=== PATIENT | female | born 1970 | race Caucasian/White ===

== ENCOUNTER → 2016-10-05 | Outpatient (CLI) | payer BC, OTHER ==
[~2016-10-05] MED LIST: ADVIN25/60 INH; ALBU1AER9 INH; ALBU1NEB10 NEB; ASTN; BUPR8MIS SL; ESCI1TAB10 PO; FEXO1TAB46 PO; FLUT0.0529 NAE; LINA1CAP2 PO; MRLP17X PO; OMEP40CA36 PO; ONDA4TAB9 PO; PLMINS NEB; SNG10 PO; SPR25 PO; TRAZ50TA35 PO
[2016-10-05 16:32] LABS: BENZODIAZEPINE, URINE NEG (NEG); COCAINE,URINE NEG (NEG); PHENCYCLIDINE, URINE NEG (NEG)
[2016-10-05 16:38] LABS: ALKALINE PHOSPHATASE 62 U/L (45-117); ALT/SGPT 23 U/L (12-78); AST/SGOT 22 U/L (15-37)
== END | disposition home or self-care (01) ==
LOC: C.LAB 12:23
PROVIDERS: ATTEND Psychiatry & Neurology Psychiatry
DX: F11.99 Opioid use, unspecified with unspecified opioid-induced disorder (principal)

== ENCOUNTER → 2017-01-20 | Outpatient (CLI) | payer BC, OTHER ==
[~2017-01-20] MED LIST changes: +ESCI1TAB18 PO; +FLUT50SP37 NAE; +OMEP40CA41 PO; +PRVIN525 INH; +VNTHFA/IN INH
[2017-01-20 13:12] LABS: BENZODIAZEPINE, URINE NEG (NEG); COCAINE,URINE NEG (NEG); PHENCYCLIDINE, URINE NEG (NEG)
== END | disposition home or self-care (01) ==
LOC: C.LAB 11:33
PROVIDERS: ATTEND Psychiatry & Neurology Psychiatry
DX: F32.9 Major depressive disorder, single episode, unspecified (principal)

== ENCOUNTER → 2017-05-19 | Outpatient (CLI) | payer BC, OTHER ==
[~2017-05-19] MED LIST changes: -ESCI1TAB18 PO; -FLUT50SP37 NAE; -OMEP40CA41 PO; -PRVIN525 INH; -VNTHFA/IN INH
[2017-05-19 12:20] LABS: BENZODIAZEPINE, URINE NEG (NEG); COCAINE,URINE NEG (NEG); PHENCYCLIDINE, URINE NEG (NEG)
[2017-05-22 12:28] LABS: NORBUPRENORPHINE QNT 1780 NG/ML (CUTOFF=2)
== END | disposition home or self-care (01) ==
LOC: C.LAB 10:51
PROVIDERS: ATTEND Psychiatry & Neurology Psychiatry
DX: F11.99 Opioid use, unspecified with unspecified opioid-induced disorder (principal)

== ENCOUNTER → 2017-07-16 | Outpatient (CLI) | payer BC, OTHER | END | disposition home or self-care (01) | LOC: C.LAB 14:22 | PROVIDERS: ATTEND Psychiatry & Neurology Psychiatry | DX: Z79.899 Other long term (current) drug therapy (principal) ==

== ENCOUNTER 2017-07-25 12:28 | Inpatient (IN) | payer BC, OTHER ==
[~2017-07-25] VITALS: Ht 160 cm; Wt 60.5 kg
[2017-07-25] MEDS ORDERED: ONDANSETRON INJ 2 MG/ML 2 ML VIAL ONE (12:57)
[2017-07-25] MEDS ORDERED: SODIUM CHLORIDE 0.9% 1000ML 1,000 ML IV STA ×2 (13:01→14:33)
[2017-07-25] MEDS ORDERED: HYDROmorphone INJ 1 MG/ML SYR IV STA ×3 (13:01→14:33)
[2017-07-25 13:28] LABS: BASO % 0.2 %; BASO ABS # 0.02 K/uL (0-0.2); COMPLETE YES; EOS % 1.9 %; HEMATOCRIT 40.6 % (37-47); IG% 0.3 %; LYMPH % 10.3 %; LYMPH ABS # 1.16 K/uL (1.2-3.4); MEAN CELL VOLUME 95.1 fL (80-100); MEAN CORPUSCULAR HGB CONC 34.7 g/dl (32-36); MEAN PLATELET VOLUME 9.6 fL (7.4-10.4); MONO % 3.7 %; NEUT % 83.6 %; PLATELET COUNT 492 K/uL (130-400); RED BLOOD COUNT 4.27 M/uL (4.2-5.4); WHITE BLOOD COUNT 11.22 K/uL (4.8-10.8)
[2017-07-25] MEDS ORDERED: ONDANSETRON INJ 2 MG/ML 2 ML VIAL IV STA (13:48)
[2017-07-25 13:50] LABS: BUN/CREATININE RATIO 16.1 (10-20); CALCIUM 9.8 mg/dl (8.5-10.1); CREATININE 0.91 mg/dl (0.60-1.20); POTASSIUM 3.9 mmol/L (3.5-5.1); PREG INTERNAL NEGATIVE QC NEG CLEAR BACKGROUND; PREG INTERNAL POSITIVE QC POS CONTROL LINE
[2017-07-25 13:53] LABS: ALB/GLOB RATIO 1.2 (0.9-2)
--- NOTE | 2017-07-25 14:28 | DIAGNOSTIC IMAGING REPORT ---
ABDOMEN 2VIEW W/PA CHEST RTN CLINICAL HISTORY: Generalized abdominal pain COMPARISON STUDY: Supine abdomen dated 07/22/2016 FINDINGS: The cardiac and mediastinal contours are normal. There is no focal pulmonary consolidation. There are minor right basilar atelectatic changes. There is no free air. Erect and supine views the abdomen reveal surgical clips within the left upper quadrant. There is moderate stool within the colon. There are mildly dilated central abdominal small bowel loops measuring up to 3 cm. There are scattered air-fluid levels on the erect study. IMPRESSION: Nonspecific bowel gas pattern with mildly dilated central small bowel loops. The findings could be secondary to either an ileus or early/low grade small bowel obstruction. No free air is visualized. Clinical follow-up is advocated Electronically signed by: Andres Bowen M.D. 07/25/2017 2:27 PM Dictated Date/Time: 07/25/2017 2:25 PM
[2017-07-25] MEDS ORDERED: VNTHFA/IN INH (15:08)
[2017-07-25] MEDS ORDERED: OMEP40CA41 PO (15:08)
[2017-07-25] MEDS ORDERED: ESCI1TAB18 PO (15:08)
[2017-07-25] MEDS ORDERED: FLUT50SP37 NAE (15:08)
[2017-07-25] MEDS ORDERED: PRVIN525 INH (15:08)
[2017-07-25] MEDS ORDERED: ONDANSETRON INJ 2 MG/ML 2 ML VIAL IV PRN (15:30)
[2017-07-25 15:58] VITALS: BP 121/79; PULSE 62; TEMP 37.1; O2SAT 96; Ht 160 cm; Wt 60.5 kg
[2017-07-25] MEDS: D5W AND 1/2NSS 1,000 ML IV SCH (16:12)
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
[2017-07-25] MEDS ORDERED: ACETAMINOPHEN 325 MG TAB PO PRN (16:30)
[2017-07-25] MEDS: MoRPHine SULFATE 4 MG/ML 1 ML CARP\\VIAL IV PRN ×2 (16:42→21:31)
[2017-07-25] MEDS ORDERED: BUDESONIDE 0.5 MG/2 ML VIAL (PULMICORT) INH PRN (16:45)
[2017-07-25] MEDS ORDERED: POLYETHYLENE (MIRALAX) 17 GM PACK PO PRN (16:45)
[2017-07-25 16:47] LABS: URINE APPEARANCE CLEAR (CLEAR); URINE BILIRUBIN NEG (NEG); URINE COLOR YELLOW; URINE NITRITE NEG (NEG); URINE SPECIFIC GRAVITY 1.021 (1.000-1.030); UROBILINOGEN POS (NEG); ZZUR CULT IF INDIC CLEAN CATCH NO
[2017-07-25 16:51] LABS: MANUAL MICROSCOPIC REQUIRED? NO; REVIEW REQ? NO
[2017-07-25] MEDS: SPIRONOLACTONE 25 MG TAB PO SCH (18:02)
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
--- NOTE | 2017-07-25 18:36 | EMERGENCY ROOM VISIT NOTE ---
History Report prepared by Diana: Eliot Fry Under the Supervision of: Dr. Tyler Lakhani M.D. First contact with patient: 12:56 Chief Complaint: GI ASSESSMENT Stated Complaint: BOWEL PROBLEMS Nursing Triage Summary: triage note: Pt reports "i am pretty sure i have another bowel obstructions." pt reports generalized abd pain since last night, nausea. pt reports constipation - unsure of when last bm was. History of Present Illness The patient is a 46 year old female who presents to the Emergency Room with complaints of constant abdominal pain that started last night. She rates her pain as a 10/10 in severity. The patient states that she has also been experiencing chills and nausea since last night. The patient states that her last bowel movement was two days ago. She reports that her abdomen has been distended since. The patient admits to a history of bowel obstructions, with her last one a year ago. She also admits to a history of peritonitis. The patient denies any fever and vomiting. Source of History: patient, spouse/significant other Onset: last night Position: abdomen Symptom Intensity: 10/10 Timing: constant Associated Symptoms: + chills, + nausea, No fevers, No vomiting Review of Systems See HPI for pertinent positives & negatives. A total of 10 systems reviewed and were otherwise negative. Past Medical & Surgical Medical Problems: (1) Allergic rhinitis (2) Anxiety (3) Asthma, Unspecified (4) Chronic neck and back pain (5) Gastroparesis (6) Hiatal hernia (7) History of Carter's esophagus (8) History of GI bleed (9) History of migraine (10) History of peritonitis (11) History of small bowel obstruction (12) Tobacco Use Disorder Surgical Problems: (1) H/O section (2) H/O laparoscopy (3) History of bronchoscopy (4) Hx of splenectomy (5) Status post tonsillectomy and adenoidectomy Old medical records were reviewed. Nurse's notes were reviewed and I agree with. Family History Diabetes mellitus FH: heart disease Social History Smoking Status: Current Every Day Smoker Drug Use: none, other Marital Status: Housing Status: lives with family Occupation Status: employed Current/Historical Medications Scheduled Buprenorphine Hcl-Naloxone Hcl (Suboxone 8-2 Mg), 8 MG SL BID Escitalopram Oxalate (Lexapro), 40 MG PO DAILY Fexofenadine Hcl (Olivia), 180 MG PO DAILY Fluticasone Prop/Salmeterol (Advair Diskus 250/50 60 Dose), 1 PUFFS INH BID Fluticasone Propionate (Nasal) (Clarispray), 2 SPRAYS NINA DAILY Linaclotide (Linzess), 290 MCG PO DAILY Montelukast Sod (Montelukast Sodium), 10 MG PO HS Omeprazole (Prilosec), 40 MG PO DAILY Spironolactone (Spironolactone), 25 MG PO BID Trazodone Hcl (Trazodone), 50 MG PO HS Scheduled PRN Albuterol Hfa (Ventolin Hfa), 2-4 PUFFS INH Q6H PRN for Shortness of Breath Albuterol Sulf (Albuterol Sulfate), 1 VIAL INH Q4 PRN for SOB/Wheezing Azelastine Hcl (Astelin Nasal [place]), 2 SPRAYS NA BID PRN for Nasal Congestion Budesonide (Budesonide), 2 ML NEB DAILY PRN for SOB/Wheezing Ondansetron (Ondansetron HCl), 4 MG PO Q6H PRN for Nausea Polyethylene (Miralax), 17 GM PO DAILY PRN for Constipation Allergies Coded Allergies: Psyllium (Verified Allergy, Severe, RESP DISTRESS, 07/25/17) POLLEN (Verified Allergy, Intermediate, "SEASONAL ALLERGIES", 07/25/17) Metoclopramide (Verified Allergy, Unknown, ?, 07/25/17) Hydroxyzine (Verified Adverse Reaction, Intermediate, ANXIETY, 07/25/17) Physical Exam Vital Signs Date Time Temp Pulse Resp B/P (MAP) Pulse Ox O2 Delivery O2 Flow Rate FiO2 07/25/17 14:43 59 16 127/88 99 Room Air 07/25/17 13:24 65 07/25/17 13:24 62 19 138/97 97 Room Air 07/25/17 12:34 36.5 78 18 122/87 98 Room Air Physical Exam General: Non-ill uncomfortable appearing middle aged female in no acute distress. HEENT: Normal cephalic atraumatic. Pupils are equal round and reactive to light. Extraocular movements are intact. Oropharynx is pink with moist mucous membranes. No swelling of the mouth lips or tongue. Neck: Supple with a midline trachea. No meningeal signs or stiffness, no JVD or bruits. No Stridor. Chest: Clear to auscultation bilaterally. No wheezes or rhonchi. No increased work of breathing. Heart: regular rate and rhythm. Abdomen: Soft nontender, nondistended without rebound guarding or rigidity. Abdomen diffusely tender Extremities: No cyanosis clubbing or edema. No calf tenderness or assymetry Spine/Back. Non tender to palpation. No CVA tenderness Skin: Good turgor without rashes. Neurologic exam: Cranial nerves two through 12 are intact. Motor and sensation are intact and symmetrical throughout. Medical Decision & Procedures ER Provider Diagnostic Interpretation: X-ray results as stated below per interpretation by me and the radiologist: ABDOMEN 2VIEW W/PA CHEST RTN CLINICAL HISTORY: Generalized abdominal pain COMPARISON STUDY: Supine abdomen dated 07/22/2016 FINDINGS: The cardiac and mediastinal contours are normal. There is no focal pulmonary consolidation. There are minor right basilar atelectatic changes. There is no free air. Erect and supine views the abdomen reveal surgical clips within the left upper quadrant. There is moderate stool within the colon. There are mildly dilated central abdominal small bowel loops measuring up to 3 cm. There are scattered air-fluid levels on the erect study. IMPRESSION: Nonspecific bowel gas pattern with mildly dilated central small bowel loops. The findings could be secondary to either an ileus or early/low grade small bowel obstruction. No free air is visualized. Clinical follow-up is advocated Electronically signed by: Andres Bowen M.D. 07/25/2017 2:27 PM Dictated Date/Time: 07/25/2017 2:25 PM Laboratory Results 07/25/17 13:15 Red Blood Count 4.27, Mean Corpuscular Volume 95.1, Mean Corpuscular Hemoglobin 33.0, Mean Corpuscular Hemoglobin Concent 34.7, Mean Platelet Volume 9.6, Neutrophils (%) (Auto) 83.6, Lymphocytes (%) (Auto) 10.3, Monocytes (%) (Auto) 3.7, Eosinophils (%) (Auto) 1.9, Basophils (%) (Auto) 0.2, Neutrophils # (Auto) 9.38, Lymphocytes # (Auto) 1.16, Monocytes # (Auto) 0.42, Eosinophils # (Auto) 0.21, Basophils # (Auto) 0.02 07/25/17 13:15 Test 07/25/17 13:15 White Blood Count 11.22 K/uL (4.8-10.8) Red Blood Count 4.27 M/uL (4.2-5.4) Hemoglobin 14.1 g/dL (12.0-16.0) Hematocrit 40.6 % (37-47) Mean Corpuscular Volume 95.1 fL (80-100) Mean Corpuscular Hemoglobin 33.0 pg (25-34) Mean Corpuscular Hemoglobin Concent 34.7 g/dl (32-36) Platelet Count 492 K/uL (130-400) Mean Platelet Volume 9.6 fL (7.4-10.4) Neutrophils (%) (Auto) 83.6 % Lymphocytes (%) (Auto) 10.3 % Monocytes (%) (Auto) 3.7 % Eosinophils (%) (Auto) 1.9 % Basophils (%) (Auto) 0.2 % Neutrophils # (Auto) 9.38 K/uL (1.4-6.5) Lymphocytes # (Auto) 1.16 K/uL (1.2-3.4) Monocytes # (Auto) 0.42 K/uL (0.11-0.59) Eosinophils # (Auto) 0.21 K/uL (0-0.5) Basophils # (Auto) 0.02 K/uL (0-0.2) RDW Standard Deviation 47.4 fL (36.4-46.3) RDW Coefficient of Variation 13.7 % (11.5-14.5) Immature Granulocyte % (Auto) 0.3 % Immature Granulocyte # (Auto) 0.03 K/uL (0.00-0.02) Anion Gap 11.0 mmol/L (3-11) Est Creatinine Clear Calc Drug Dose 65.2 ml/min Estimated GFR () 88.9 Estimated GFR (Non- 76.7 BUN/Creatinine Ratio 16.1 (10-20) Calcium Level 9.8 mg/dl (8.5-10.1) Total Bilirubin 0.4 mg/dl (0.2-1) Aspartate Amino Transf (AST/SGOT) 24 U/L (15-37) Alanine Aminotransferase (ALT/SGPT) 20 U/L (12-78) Alkaline Phosphatase 70 U/L (45-117) Total Protein 8.3 gm/dl (6.4-8.2) Albumin 4.5 gm/dl (3.4-5.0) Globulin 3.8 gm/dl (2.5-4.0) Albumin/Globulin Ratio 1.2 (0.9-2) Lipase 160 U/L (73-393) Human Chorionic Gonadotropin, Qual NEG (NEG) Laboratory studies as stated above per my review. Medications Administered Medications (Trade) Dose Ordered Sig/Arian Route Start Time Stop Time Status Last Admin Dose Admin Ondansetron HCl (Zofran Inj) 4 mg STK-MED ONCE .ROUTE 07/25/17 12:57 07/25/17 12:58 DC 07/25/17 12:57 4 MG Sodium Chloride 1,000 ml @ 999 mls/hr Q1H1M STAT IV 07/25/17 13:01 07/25/17 14:01 DC 07/25/17 13:01 999 MLS/HR Hydromorphone HCl (Dilaudid Inj) 1 mg NOW STAT IV 07/25/17 13:01 07/25/17 13:03 DC 07/25/17 13:01 1 MG Ondansetron HCl (Zofran Inj) 4 mg NOW STAT IV 07/25/17 13:48 07/25/17 13:49 DC 07/25/17 14:07 4 MG Hydromorphone HCl (Dilaudid Inj) 1 mg NOW STAT IV 07/25/17 13:48 07/25/17 13:49 DC 07/25/17 14:07 1 MG Sodium Chloride 1,000 ml @ 999 mls/hr Q1H1M STAT IV 07/25/17 14:33 07/25/17 15:33 DC 07/25/17 14:33 999 MLS/HR Hydromorphone HCl (Dilaudid Inj) 1 mg NOW STAT IV 07/25/17 14:33 07/25/17 14:35 DC 07/25/17 14:41 1 MG ED Course 1257: Past medical records reviewed. The patient was evaluated in room B10, and a complete history and physical examination were performed. 1257: Ordered Zofran Injection 4 mg IV. 1301: Ordered Dilaudid Injection 1 mg IV, Sodium Chloride 1000 ml @ 999 mls/hr IV. 1338: I reevaluated the patient and she was able to get an IV with a liter of fluids. She still is having pain. Upon reexamination, her exam is unchanged from her original exam. I will be ordering more medication for her pain and nausea. 1348: Ordered Dilaudid Injection 1 mg IV, Zofran Injection 4 mg IV. 1431: I reevaluated the patient and she is still in pain after CT. I will order more pain medications. 1433: Ordered Dilaudid Injection 1 mg IV, Sodium Chloride 1000 ml @ 999 mls/hr IV. 1435: [facility] understands the patients condition and agrees to accept the patient. The patient will be further evaluated. Medical Decision Differentials include, but limited to; SBO, dehydration, infection, electrolyte or metabolic abnormality. This patient comes in as described above. She was placed in room B 10. She is here for treatment and evaluation of abdominal pain and nausea. She has a history of small bowel obstruction secondary to adhesions and she had this several times before. She feels like this is what is going on. She appears very uncomfortable. IV access established and she was hydrated with IV normal saline. She received 2 L normal saline in the ER . She also received IV Dilaudid several times as well as IV Zofran . This helped she still appears to be uncomfortable. She's has no peritonitis should has minimal elevation of her white count. She is not anemic. She is not . She has no acute electrolyte or metabolic abnormalities. Acute abdominal series shows some air- fluid levels in likely early small bowel obstruction/ileus pattern. I do think she needs to be admitted for bowel rest hydration pain and nausea management further evaluation. I have consulted Dr. Kathleen and she [facility] Medication Reconcilliation Current Medication List: was personally reviewed by me Blood Pressure Screening Patient's blood pressure: Normal blood pressure Consults Time Called: 1434 Consulting Physician: Yfn Mclaughlin Returned Call: 1436 I discussed the patients case with Yfn Mclaughlin. He understands the patients condition and agrees to accept the patient. The patient will be further evaluated. Impression Primary Impression: SBO (small bowel obstruction) Scribe Attestation The scribe's documentation has been prepared under my direction and personally reviewed by me in its entirety. I confirm that the note above accurately reflects all work, treatment, procedures, and medical decision making performed by me. Departure Information Dispostion Being Evaluated By Hospitalist Referrals No Doctor, Assigned (PCP) Patient Instructions My [facility]
[2017-07-25] MEDS: ALBUTEROL HFA 8 GM INHALER INH PRN (18:53)
[2017-07-25] MEDS: FLUTICASONE/SALMETEROL 250/50 (ADVAIR) 14 PUFF/1 INHALER INH SCH (18:59)
[2017-07-25] MEDS: MONTELUKAST SOD 10 MG TAB PO SCH (21:29)
[2017-07-25] MEDS: TRAZODONE HCL 50 MG TAB PO SCH (21:29)
[2017-07-25] MEDS: BUPRENORPHINE/NALOXONE 8/2 MG TAB SL SCH (21:29)
[2017-07-25] MEDS: ALBUT/IPRATROP 3MG/0.5MG NEB 3 ML VIAL INH SCH (21:40)
[2017-07-25 21:41] VITALS: PULSE 68
[2017-07-25] MEDS: BENZONATATE 100MG CAP PO SCH (22:33)
[2017-07-25 22:55] VITALS: BP 99/57; PULSE 76; TEMP 37; O2SAT 94
[2017-07-26] VITALS (7 sets, daily range): BP systolic 93–96; BP diastolic 53–59; PULSE 63–85; TEMP 36.8; O2SAT 95–98
[2017-07-26] MEDS: MoRPHine SULFATE 4 MG/ML 1 ML CARP\\VIAL IV PRN (02:21)
[2017-07-26] MEDS: D5W AND 1/2NSS 1,000 ML IV SCH ×2 (04:29→17:53)
[2017-07-26] MEDS: ALBUT/IPRATROP 3MG/0.5MG NEB 3 ML VIAL INH SCH ×4 (07:22→20:16)
[2017-07-26 08:33] LABS: CREATININE 0.86 mg/dl (0.60-1.20)
[2017-07-26 08:34] LABS: ALB/GLOB RATIO 1.1 (0.9-2); CALCIUM 7.8 mg/dl (8.5-10.1); MAGNESIUM 1.9 mg/dl (1.8-2.4); POTASSIUM 3.2 mmol/L (3.5-5.1)
[2017-07-26 08:47] LABS: BASO % 0.2 %; BASO ABS # 0.02 K/uL (0-0.2); COMPLETE YES; EOS % 3.6 %; HEMATOCRIT 33.2 % (37-47); IG% 0.2 %; LYMPH % 26.4 %; MEAN CELL VOLUME 97.1 fL (80-100); MEAN CORPUSCULAR HEMOGLOBIN 32.2 pg (25-34); MEAN CORPUSCULAR HGB CONC 33.1 g/dl (32-36); MEAN PLATELET VOLUME 9.3 fL (7.4-10.4); MONO % 11.4 %; NEUT % 58.2 %; PLATELET COUNT 375 K/uL (130-400); RED BLOOD COUNT 3.42 M/uL (4.2-5.4); WHITE BLOOD COUNT 11.36 K/uL (4.8-10.8)
[2017-07-26] MEDS ORDERED: ESCITALOPRAM OXALATE 20 MG TAB PO SCH (09:00)
[2017-07-26] MEDS: FLUTICASONE/SALMETEROL 250/50 (ADVAIR) 14 PUFF/1 INHALER INH SCH ×2 (09:54→21:04)
[2017-07-26] MEDS: PANTOprazole SOD 40 MG TAB PO SCH (09:54)
[2017-07-26] MEDS: SPIRONOLACTONE 25 MG TAB PO SCH ×2 (09:54→16:27)
[2017-07-26] MEDS: BENZONATATE 100MG CAP PO SCH ×3 (09:55→21:06)
[2017-07-26] MEDS ORDERED: POTASSIUM CHLR 10 MEQ / WTR 10 MEQ in PREMIXED WATER 100 ML IV SCH (10:00)
--- NOTE | 2017-07-26 10:09 | Surgery Progress Note ---
Surgery Progress Note Date of Service Jul 26, 2017. Subjective Post OP Day: HD # 1 + feeling well, + flatus, + pain controlled, + diet (ice chips and sips of water ), No complaints, No chest pain, No SOB, No bowel movement, No nausea, No vomiting Objective Vital Signs: Date Time Temp Pulse Resp B/P (MAP) Pulse Ox O2 Delivery O2 Flow Rate FiO2 07/26/17 09:22 Room Air 07/26/17 07:41 36.8 70 20 95/53 (67) 98 Room Air 07/26/17 07:22 85 20 98 Room Air 07/25/17 23:26 Room Air 07/25/17 22:55 37.0 76 16 99/57 (71) 94 Room Air 07/25/17 21:41 68 20 07/25/17 16:30 Room Air 07/25/17 15:58 37.1 62 15 121/79 96 Room Air 07/25/17 15:19 64 20 130/76 99 Room Air 07/25/17 14:43 59 16 127/88 99 Room Air 07/25/17 13:24 65 07/25/17 13:24 62 19 138/97 97 Room Air 07/25/17 12:34 36.5 78 18 122/87 98 Room Air General Appearance: WD/WN, no apparent distress Head: normocephalic, atraumatic Neck: trachea midline Respiratory/Chest: no respiratory distress, no accessory muscle use Abdomen: soft, + distended (mild), + tenderness (upper quadrants, no rebound, guarding, or peritonitis) Laboratory Results: Results Past 24 Hours Test 07/25/17 13:15 07/25/17 16:30 07/26/17 07:29 Range/Units White Blood Count 11.22 11.36 4.8-10.8 K/uL Red Blood Count 4.27 3.42 4.2-5.4 M/uL Hemoglobin 14.1 11.0 12.0-16.0 g/dL Hematocrit 40.6 33.2 37-47 % Mean Corpuscular Volume 95.1 97.1 80-100 fL Mean Corpuscular Hemoglobin 33.0 32.2 25-34 pg Mean Corpuscular Hemoglobin Concent 34.7 33.1 32-36 g/dl Platelet Count 492 375 130-400 K/uL Mean Platelet Volume 9.6 9.3 7.4-10.4 fL Neutrophils (%) (Auto) 83.6 58.2 % Lymphocytes (%) (Auto) 10.3 26.4 % Monocytes (%) (Auto) 3.7 11.4 % Eosinophils (%) (Auto) 1.9 3.6 % Basophils (%) (Auto) 0.2 0.2 % Neutrophils # (Auto) 9.38 6.62 1.4-6.5 K/uL Lymphocytes # (Auto) 1.16 3.00 1.2-3.4 K/uL Monocytes # (Auto) 0.42 1.29 0.11-0.59 K/uL Eosinophils # (Auto) 0.21 0.41 0-0.5 K/uL Basophils # (Auto) 0.02 0.02 0-0.2 K/uL RDW Standard Deviation 47.4 49.3 36.4-46.3 fL RDW Coefficient of Variation 13.7 13.8 11.5-14.5 % Immature Granulocyte % (Auto) 0.3 0.2 % Immature Granulocyte # (Auto) 0.03 0.02 0.00-0.02 K/uL Sodium Level 141 143 136-145 mmol/L Potassium Level 3.9 3.2 3.5-5.1 mmol/L Chloride Level 105 110 98-107 mmol/L Carbon Dioxide Level 25 25 21-32 mmol/L Anion Gap 11.0 8.0 3-11 mmol/L Blood Urea Nitrogen 15 7 7-18 mg/dl Creatinine 0.91 0.86 0.60-1.20 mg/dl Est Creatinine Clear Calc Drug Dose 65.2 69.0 ml/min Estimated GFR () 88.9 95.2 Estimated GFR (Non- 76.7 82.2 BUN/Creatinine Ratio 16.1 8.0 10-20 Random Glucose 127 114 70-99 mg/dl Calcium Level 9.8 7.8 8.5-10.1 mg/dl Total Bilirubin 0.4 0.4 0.2-1 mg/dl Aspartate Amino Transf (AST/SGOT) 24 19 15-37 U/L Alanine Aminotransferase (ALT/SGPT) 20 15 12-78 U/L Alkaline Phosphatase 70 55 45-117 U/L Total Protein 8.3 5.9 6.4-8.2 gm/dl Albumin 4.5 3.1 3.4-5.0 gm/dl Globulin 3.8 2.8 2.5-4.0 gm/dl Albumin/Globulin Ratio 1.2 1.1 0.9-2 Lipase 160 73-393 U/L Human Chorionic Gonadotropin, Qual NEG NEG Urine Color YELLOW Urine Appearance CLEAR CLEAR Urine pH 8.0 4.5-7.5 Urine Specific [place] 1.021 1.000-1.030 Urine Protein NEG NEG Urine Glucose (UA) NEG NEG Urine Ketones 1+ NEG Urine Occult Blood NEG NEG Urine Nitrite NEG NEG Urine Bilirubin NEG NEG Urine Urobilinogen POS NEG Urine Leukocyte Esterase NEG NEG Magnesium Level 1.9 1.8-2.4 mg/dl Assessment & Plan 46 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 Passing flatus, no bowel movements. Vitals stable and afebrile. Tolerating ice chips and sips of water. Abdomen soft, slightly distended with tenderness of the upper quadrants, no peritonitis or rigidity Plan: Continue conservative management at this time: IV fluids, Pain management, IV Zofran, and clear liquids encourage ambulation and OOB to chair Continue medical management will follow Dr. Calvin has seen pt, agrees with above
[2017-07-26] MEDS: ESCITALOPRAM OXALATE 20 MG TAB PO SCH (10:22)
[2017-07-26] MEDS: BUPRENORPHINE/NALOXONE 8/2 MG TAB SL SCH ×2 (10:22→21:05)
[2017-07-26] MEDS: NICOTINE 21 MG/24 HR TDSY TD SCH (11:44)
[2017-07-26] MEDS ORDERED: POTASSIUM CHLORIDE 20 MEQ TABCR PO ONE (13:00)
--- NOTE | 2017-07-26 13:44 | Progress Note ---
Medicine Progress Note Date & Time of Visit: Jul 26, 2017 at 13:26. Subjective 46 yo F with h/o multiple abdominal surgeries and h/o SBO in the past presents with nausea and abdominal pain with xray findings consistent with ileus vs early SBO -abdominal pain has resolved -no nausea or vomiting -ambulating -hungry -passing flatus -no BM since admission, has chronic constipation and uses Linzess which is non- formulary -son is getting medication at home. Objective Last 8 Hrs Date Time Temp Pulse Resp B/P (MAP) Pulse Ox O2 Delivery O2 Flow Rate FiO2 07/26/17 11:27 76 20 98 Room Air 07/26/17 09:22 Room Air 07/26/17 09:00 Room Air 07/26/17 07:41 36.8 70 20 95/53 (67) 98 Room Air 07/26/17 07:22 85 20 98 Room Air Physical Exam: GEN: WNWD, in no acute distress, alert and appropriate HEENT: NC/AT, normal sclerae, MMM CARDIO: reg rate, S1/2 heard without m/g/r LUNGS: CTA bilaterally, no crackles, rales or wheezes, good diaphragmatic excursion ABD: soft, diffuse tenderness worse on L side, non-distended, no rebound or guarding, +BS x 3 quadrants. EXTREMITY: RP and DP palpable 2+ bilat, no LE swelling or edema, extremities are warm and well-perfused NEURO: CN 2-12 grossly intact, no gross focal deficits. MUSC: 5/5 strength throughout, no focal deficits, ambulatory SKIN: warm and dry Laboratory Results: 07/26/17 07:29 Red Blood Count 3.42, Mean Corpuscular Volume 97.1, Mean Corpuscular Hemoglobin 32.2, Mean Corpuscular Hemoglobin Concent 33.1, Mean Platelet Volume 9.3, Neutrophils (%) (Auto) 58.2, Lymphocytes (%) (Auto) 26.4, Monocytes (%) (Auto) 11.4, Eosinophils (%) (Auto) 3.6, Basophils (%) (Auto) 0.2, Neutrophils # (Auto ) 6.62, Lymphocytes # (Auto) 3.00, Monocytes # (Auto) 1.29, Eosinophils # (Auto ) 0.41, Basophils # (Auto) 0.02 07/26/17 07:29 Test 07/25/17 13:15 07/25/17 16:30 07/26/17 07:29 Lipase 160 U/L (73-393) Human Chorionic Gonadotropin, Qual NEG (NEG) Urine Color YELLOW Urine Appearance CLEAR (CLEAR) Urine pH 8.0 (4.5-7.5) Urine Specific [place] 1.021 (1.000-1.030) Urine Protein NEG (NEG) Urine Glucose (UA) NEG (NEG) Urine Ketones 1+ (NEG) Urine Occult Blood NEG (NEG) Urine Nitrite NEG (NEG) Urine Bilirubin NEG (NEG) Urine Urobilinogen POS (NEG) Urine Leukocyte Esterase NEG (NEG) White Blood Count 11.36 K/uL (4.8-10.8) Red Blood Count 3.42 M/uL (4.2-5.4) Hemoglobin 11.0 g/dL (12.0-16.0) Hematocrit 33.2 % (37-47) Mean Corpuscular Volume 97.1 fL (80-100) Mean Corpuscular Hemoglobin 32.2 pg (25-34) Mean Corpuscular Hemoglobin Concent 33.1 g/dl (32-36) Platelet Count 375 K/uL (130-400) Mean Platelet Volume 9.3 fL (7.4-10.4) Neutrophils (%) (Auto) 58.2 % Lymphocytes (%) (Auto) 26.4 % Monocytes (%) (Auto) 11.4 % Eosinophils (%) (Auto) 3.6 % Basophils (%) (Auto) 0.2 % Neutrophils # (Auto) 6.62 K/uL (1.4-6.5) Lymphocytes # (Auto) 3.00 K/uL (1.2-3.4) Monocytes # (Auto) 1.29 K/uL (0.11-0.59) Eosinophils # (Auto) 0.41 K/uL (0-0.5) Basophils # (Auto) 0.02 K/uL (0-0.2) RDW Standard Deviation 49.3 fL (36.4-46.3) RDW Coefficient of Variation 13.8 % (11.5-14.5) Immature Granulocyte % (Auto) 0.2 % Immature Granulocyte # (Auto) 0.02 K/uL (0.00-0.02) Anion Gap 8.0 mmol/L (3-11) Est Creatinine Clear Calc Drug Dose 69.0 ml/min Estimated GFR () 95.2 Estimated GFR (Non- 82.2 BUN/Creatinine Ratio 8.0 (10-20) Calcium Level 7.8 mg/dl (8.5-10.1) Magnesium Level 1.9 mg/dl (1.8-2.4) Total Bilirubin 0.4 mg/dl (0.2-1) Aspartate Amino Transf (AST/SGOT) 19 U/L (15-37) Alanine Aminotransferase (ALT/SGPT) 15 U/L (12-78) Alkaline Phosphatase 55 U/L (45-117) Total Protein 5.9 gm/dl (6.4-8.2) Albumin 3.1 gm/dl (3.4-5.0) Globulin 2.8 gm/dl (2.5-4.0) Albumin/Globulin Ratio 1.1 (0.9-2) Last 24 Hours Test 07/25/17 16:30 07/26/17 07:29 Urine Color YELLOW Urine Appearance CLEAR Urine pH 8.0 Urine Specific [place] 1.021 Urine Protein NEG Urine Glucose (UA) NEG Urine Ketones 1+ Urine Occult Blood NEG Urine Nitrite NEG Urine Bilirubin NEG Urine Urobilinogen POS Urine Leukocyte Esterase NEG White Blood Count 11.36 K/uL Red Blood Count 3.42 M/uL Hemoglobin 11.0 g/dL Hematocrit 33.2 % Mean Corpuscular Volume 97.1 fL Mean Corpuscular Hemoglobin 32.2 pg Mean Corpuscular Hemoglobin Concent 33.1 g/dl Platelet Count 375 K/uL Mean Platelet Volume 9.3 fL Neutrophils (%) (Auto) 58.2 % Lymphocytes (%) (Auto) 26.4 % Monocytes (%) (Auto) 11.4 % Eosinophils (%) (Auto) 3.6 % Basophils (%) (Auto) 0.2 % Neutrophils # (Auto) 6.62 K/uL Lymphocytes # (Auto) 3.00 K/uL Monocytes # (Auto) 1.29 K/uL Eosinophils # (Auto) 0.41 K/uL Basophils # (Auto) 0.02 K/uL RDW Standard Deviation 49.3 fL RDW Coefficient of Variation 13.8 % Immature Granulocyte % (Auto) 0.2 % Immature Granulocyte # (Auto) 0.02 K/uL Sodium Level 143 mmol/L Potassium Level 3.2 mmol/L Chloride Level 110 mmol/L Carbon Dioxide Level 25 mmol/L Anion Gap 8.0 mmol/L Blood Urea Nitrogen 7 mg/dl Creatinine 0.86 mg/dl Est Creatinine Clear Calc Drug Dose 69.0 ml/min Estimated GFR () 95.2 Estimated GFR (Non- 82.2 BUN/Creatinine Ratio 8.0 Random Glucose 114 mg/dl Calcium Level 7.8 mg/dl Magnesium Level 1.9 mg/dl Total Bilirubin 0.4 mg/dl Aspartate Amino Transf (AST/SGOT) 19 U/L Alanine Aminotransferase (ALT/SGPT) 15 U/L Alkaline Phosphatase 55 U/L Total Protein 5.9 gm/dl Albumin 3.1 gm/dl Globulin 2.8 gm/dl Albumin/Globulin Ratio 1.1 Assessment & Plan 46 yo F with h/o multiple abdominal surgeries and h/o SBO in the past presents with nausea and abdominal pain with xray findings consistent with ileus vs early SBO 1. Abdominal pain 2/2 ileus vs SBO-pain has resolved at this time. She has been up and walking around with improvement. She is passing gas, declines nausea and reports hunger. Advancing diet to clear liquids and monitor progress overnight. She has seen in the past that stress is her trigger and there have been stressful events in her life recently. Cont Zofran PRN, minimize narcotics with h/o opioid addiction in the past. Cont Suboxone for pain control. Appreciate General Surgery. Miralax PRN-awaiting Linzess from home. 2. h/o opioid addiction-minimize excessive narcotic PO use, cont suboxone. 3. Asthma-controlled, cont Advair and singulair 4. Depression/anxiety-stable, cont Lexapro 5. Hyopkalemia-replaced PO, repeat in am. DVT ppx: Lovenox. Full Code dispo-to home when tolerating PO, likely 1-2 more days DO Yfn Montes Hospitalist Consultants: General Surgery Current Inpatient Medications: Current Inpatient Medications Medications (Trade) Dose Ordered Sig/Arian Route Start Time Stop Time Status Last Admin Dose Admin Ondansetron HCl (Zofran Inj) 4 mg Q4H PRN IV 07/25/17 15:30 08/24/17 15:29 Dextrose/Sodium Chloride 1,000 ml @ 75 mls/hr [id number] IV 07/25/17 15:30 08/24/17 15:29 07/26/17 04:29 75 MLS/HR Morphine Sulfate (MoRPHine SULFATE INJ) 4 mg Q4H PRN IV 07/25/17 16:30 08/08/17 16:29 07/26/17 02:21 4 MG Acetaminophen (Tylenol Tab) 650 mg Q6H PRN PO 07/25/17 16:30 08/24/17 16:29 Albuterol (Ventolin Hfa Inhaler) 2 puffs Q6H PRN INH 07/25/17 16:45 08/24/17 16:44 07/25/17 18:53 2 PUFFS Budesonide (Pulmicort Respules 0.5MG/ 2ML Neb Soln) 1 mg DAILY PRN INH 07/25/17 16:45 08/24/17 16:44 Future Hold Buprenorphine/ Naloxone (Suboxone Tab) 1 tab BID SL 07/25/17 21:00 08/24/17 20:59 07/26/17 10:22 1 TAB Salmeterol Xinafoate/ Fluticasone (Advair Diskus 250/50 Inh) 1 puff BID INH 07/25/17 21:00 08/24/17 20:59 07/26/17 09:54 1 PUFF Montelukast Sodium (Singulair Tab) 10 mg HS PO 07/25/17 21:00 08/24/17 20:59 07/25/17 21:29 10 MG Polyethylene (Miralax Powder Packet) 17 gm DAILY PRN PO 07/25/17 16:45 08/24/17 16:44 Spironolactone (Aldactone Tab) 25 mg BID17 PO 07/25/17 17:00 08/24/17 16:59 07/26/17 09:54 25 MG Trazodone HCl (Desyrel Tab) 50 mg HS PO 07/25/17 21:00 08/24/17 20:59 07/25/17 21:29 50 MG Miscellaneous Information (Order Awaiting Action) 1 ea QS N/A 07/26/17 00:00 08/25/17 00:00 Pantoprazole Sodium (Protonix Tab) 40 mg DAILY PO 07/26/17 09:00 08/25/17 08:59 07/26/17 09:54 40 MG Escitalopram Oxalate (Lexapro Tab) 20 mg DAILY PO 07/26/17 09:00 08/25/17 08:59 07/26/17 10:22 20 MG Albuterol/ Ipratropium (Duoneb) 3 ml QIDR INH 07/26/17 08:00 08/25/17 07:59 07/26/17 11:27 3 ML Benzonatate (Tessalon Perles Cap) 100 mg TID PO 07/26/17 09:00 08/25/17 08:59 07/26/17 09:55 100 MG Diphenhydramine HCl (Benadryl Cap) 25 mg HS PRN PO 07/25/17 21:45 08/24/17 21:44 07/25/17 22:32 25 MG Nicotine (Nicoderm Cq 21MG Patch) 1 patch QAM TD 07/26/17 11:00 08/25/17 10:59 07/26/17 11:44 1 PATCH Miscellaneous (Remove Nicoderm Patch) 1 ea HS N/A 07/26/17 21:00 08/25/17 20:59
[2017-07-26] MEDS ORDERED: POLYETHYLENE (MIRALAX) 17 GM PACK PO PRN (13:45)
[2017-07-26 14:23] LABS: PROTHROMBIN TIME (PATIENT) 10.6 SECONDS (9.0-12.0)
[2017-07-26] MEDS: ENOXAPARIN 40 MG/0.4 ML SYR SQ SCH (16:26)
[2017-07-26] MEDS: MONTELUKAST SOD 10 MG TAB PO SCH (21:05)
[2017-07-26] MEDS: TRAZODONE HCL 50 MG TAB PO SCH (21:06)
[2017-07-26] MEDS ORDERED: NURSING VERBAL MED ORDER ONE (23:15)
[2017-07-27] MEDS ORDERED: LINACLOTIDE 290 MCG PO SCH (06:00)
[2017-07-27 06:32] LABS: HEMATOCRIT 30.5 % (37-47); MEAN CELL VOLUME 96.5 fL (80-100); MEAN CORPUSCULAR HEMOGLOBIN 32.6 pg (25-34); MEAN CORPUSCULAR HGB CONC 33.8 g/dl (32-36); MEAN PLATELET VOLUME 9.4 fL (7.4-10.4); PLATELET COUNT 364 K/uL (130-400); RED BLOOD COUNT 3.16 M/uL (4.2-5.4); WHITE BLOOD COUNT 7.64 K/uL (4.8-10.8)
[2017-07-27] MEDS: D5W AND 1/2NSS 1,000 ML IV SCH ×2 (06:40→20:28)
[2017-07-27] MEDS: ALBUT/IPRATROP 3MG/0.5MG NEB 3 ML VIAL INH SCH ×2 (06:59→11:21)
[2017-07-27 07:00] VITALS: PULSE 64; O2SAT 97
[2017-07-27 07:02] LABS: BUN/CREATININE RATIO 5.1 (10-20); CALCIUM 7.8 mg/dl (8.5-10.1); CREATININE 0.85 mg/dl (0.60-1.20); MAGNESIUM 1.7 mg/dl (1.8-2.4); POTASSIUM 3.6 mmol/L (3.5-5.1)
[2017-07-27 07:26] VITALS: BP 96/54; PULSE 69; TEMP 36.7; O2SAT 94
[2017-07-27] MEDS: PANTOprazole SOD 40 MG TAB PO SCH (09:11)
[2017-07-27] MEDS: ESCITALOPRAM OXALATE 20 MG TAB PO SCH (09:11)
[2017-07-27] MEDS: FLUTICASONE/SALMETEROL 250/50 (ADVAIR) 14 PUFF/1 INHALER INH SCH ×2 (09:12→20:29)
[2017-07-27] MEDS: NICOTINE 21 MG/24 HR TDSY TD SCH (09:12)
[2017-07-27] MEDS: BENZONATATE 100MG CAP PO SCH ×3 (09:12→20:28)
[2017-07-27] MEDS: SPIRONOLACTONE 25 MG TAB PO SCH ×2 (09:12→16:55)
[2017-07-27] MEDS: BUPRENORPHINE/NALOXONE 8/2 MG TAB SL SCH ×2 (10:00→20:28)
[2017-07-27 11:23] VITALS: PULSE 68; O2SAT 98
--- NOTE | 2017-07-27 14:02 | Progress Note ---
Medicine Progress Note Date & Time of Visit: Jul 27, 2017 at 14:01 . Subjective Abdominal distention. No nausea or vomiting. Passing flatus, no stool. No fever. No cough or SOB. No urinary symptoms. Ambulating. . Objective Last 8 Hrs Date Time Temp Pulse Resp B/P (MAP) Pulse Ox O2 Delivery O2 Flow Rate FiO2 07/27/17 11:23 68 14 98 Room Air 07/27/17 07:50 Room Air 07/27/17 07:26 36.7 69 17 96/54 (68) 94 Room Air 07/27/17 07:00 64 16 97 Room Air Physical Exam: General- no distress Lungs- clear Heart- RRR, no murmur or gallop Abdomen- moderately distended, + BS, soft, diffuse mild tenderness Extremities- no pretibial edema or calf tenderness Neuro- alert Skin- warm & dry . Laboratory Results: Last 24 Hours Test 07/27/17 06:16 White Blood Count 7.64 K/uL Red Blood Count 3.16 M/uL Hemoglobin 10.3 g/dL Hematocrit 30.5 % Mean Corpuscular Volume 96.5 fL Mean Corpuscular Hemoglobin 32.6 pg Mean Corpuscular Hemoglobin Concent 33.8 g/dl RDW Standard Deviation 48.7 fL RDW Coefficient of Variation 13.8 % Platelet Count 364 K/uL Mean Platelet Volume 9.4 fL Sodium Level 143 mmol/L Potassium Level 3.6 mmol/L Chloride Level 113 mmol/L Carbon Dioxide Level 23 mmol/L Anion Gap 7.0 mmol/L Blood Urea Nitrogen 4 mg/dl Creatinine 0.85 mg/dl Est Creatinine Clear Calc Drug Dose 69.8 ml/min Estimated GFR () 96.6 Estimated GFR (Non- 83.3 BUN/Creatinine Ratio 5.1 Random Glucose 116 mg/dl Calcium Level 7.8 mg/dl Magnesium Level 1.7 mg/dl Assessment & Plan SMALL BOWEL OBSTRUCTION Probable SBO secondary to adhesions from previous surgeries. Abdomen still distended. Passing flatus, but no stool. Continue clear liquids. Advance diet as tolerated. HYPOKALEMIA Replace. Follow. ASTHMA Stable. CHRONIC PAIN SYNDROME / OPIOID ADDICTION Continue Suboxone. VTE PROPHYLAXIS SQ enoxaparin. Ambulate. DISPOSITION Expected discharge to home. Family Medicine follow-up with Dr. Hairston. . Consultants: General Surgery Current Inpatient Medications: Current Inpatient Medications Medications (Trade) Dose Ordered Sig/Arian Route Start Time Stop Time Status Last Admin Dose Admin Ondansetron HCl (Zofran Inj) 4 mg Q4H PRN IV 07/25/17 15:30 08/24/17 15:29 Dextrose/Sodium Chloride 1,000 ml @ 75 mls/hr [id number] IV 07/25/17 15:30 08/24/17 15:29 07/27/17 06:40 75 MLS/HR Morphine Sulfate (MoRPHine SULFATE INJ) 4 mg Q4H PRN IV 07/25/17 16:30 08/08/17 16:29 Future Hold 07/26/17 02:21 4 MG Acetaminophen (Tylenol Tab) 650 mg Q6H PRN PO 07/25/17 16:30 08/24/17 16:29 Albuterol (Ventolin Hfa Inhaler) 2 puffs Q6H PRN INH 07/25/17 16:45 08/24/17 16:44 07/25/17 18:53 2 PUFFS Budesonide (Pulmicort Respules 0.5MG/ 2ML Neb Soln) 1 mg DAILY PRN INH 07/25/17 16:45 08/24/17 16:44 Future Hold Buprenorphine/ Naloxone (Suboxone Tab) 1 tab BID SL 07/25/17 21:00 08/24/17 20:59 07/27/17 10:00 1 TAB Salmeterol Xinafoate/ Fluticasone (Advair Diskus 250/50 Inh) 1 puff BID INH 07/25/17 21:00 08/24/17 20:59 07/27/17 09:12 1 PUFF Montelukast Sodium (Singulair Tab) 10 mg HS PO 07/25/17 21:00 08/24/17 20:59 07/26/17 21:05 10 MG Polyethylene (Miralax Powder Packet) 17 gm DAILY PRN PO 07/25/17 16:45 08/24/17 16:44 Spironolactone (Aldactone Tab) 25 mg BID17 PO 07/25/17 17:00 08/24/17 16:59 07/27/17 09:12 25 MG Trazodone HCl (Desyrel Tab) 50 mg HS PO 07/25/17 21:00 08/24/17 20:59 07/26/17 21:06 50 MG Pantoprazole Sodium (Protonix Tab) 40 mg DAILY PO 07/26/17 09:00 08/25/17 08:59 07/27/17 09:11 40 MG Escitalopram Oxalate (Lexapro Tab) 20 mg DAILY PO 07/26/17 09:00 08/25/17 08:59 07/27/17 09:11 20 MG Albuterol/ Ipratropium (Duoneb) 3 ml QIDR INH 07/26/17 08:00 08/25/17 07:59 07/27/17 11:21 3 ML Benzonatate (Tessalon Perles Cap) 100 mg TID PO 07/26/17 09:00 08/25/17 08:59 07/27/17 09:12 100 MG Diphenhydramine HCl (Benadryl Cap) 25 mg HS PRN PO 07/25/17 21:45 08/24/17 21:44 07/25/17 22:32 25 MG Nicotine (Nicoderm Cq 21MG Patch) 1 patch QAM TD 07/26/17 11:00 08/25/17 10:59 07/27/17 09:12 1 PATCH Miscellaneous (Remove Nicoderm Patch) 1 ea HS N/A 07/26/17 21:00 08/25/17 20:59 07/26/17 21:07 1 EA Enoxaparin Sodium (Lovenox Inj) 40 mg Q24H SQ 07/26/17 16:00 08/25/17 15:59 07/26/17 16:26 40 MG Polyethylene (Miralax Powder Packet) 17 gm DAILY PRN PO 07/26/17 13:45 08/25/17 13:44 Linaclotide (Linzess) 290 mcg HS PO 07/27/17 21:00 08/26/17 20:59
--- NOTE | 2017-07-27 14:23 | Surgery Progress Note ---
Surgery Progress Note Date of Service Jul 27, 2017. Subjective Post OP Day: HD # 2 + feeling well had some abdominal pain after drinking clear liquids yesterday, took it slow Still passing flatus, no bowel movement No nausea or vomiting pain improving daily walking the halls multiple times a day Objective Vital Signs: Date Time Temp Pulse Resp B/P (MAP) Pulse Ox O2 Delivery O2 Flow Rate FiO2 07/27/17 11:23 68 14 98 Room Air 07/27/17 07:50 Room Air 07/27/17 07:26 36.7 69 17 96/54 (68) 94 Room Air 07/27/17 07:00 64 16 97 Room Air 07/26/17 23:47 Room Air 07/26/17 23:08 36.8 63 16 95/54 (68) 96 Room Air 07/26/17 20:16 76 16 97 Room Air 07/26/17 15:23 36.8 74 18 96/59 (71) 95 Room Air 07/26/17 15:15 Room Air 07/26/17 15:09 71 16 97 Room Air General Appearance: WD/WN, no apparent distress Head: normocephalic, atraumatic Neck: trachea midline Respiratory/Chest: no respiratory distress, no accessory muscle use Abdomen: soft, no organomegaly, no pulsatile mass, + distended (mild distention ), + tenderness (upper abdomen bilaterally, improved, no gaurding or peritonitis or rigidity), + pertinent finding (midline laparotomy scar present) Laboratory Results: Results Past 24 Hours Test 07/27/17 06:16 Range/Units White Blood Count 7.64 4.8-10.8 K/uL Red Blood Count 3.16 4.2-5.4 M/uL Hemoglobin 10.3 12.0-16.0 g/dL Hematocrit 30.5 37-47 % Mean Corpuscular Volume 96.5 80-100 fL Mean Corpuscular Hemoglobin 32.6 25-34 pg Mean Corpuscular Hemoglobin Concent 33.8 32-36 g/dl RDW Standard Deviation 48.7 36.4-46.3 fL RDW Coefficient of Variation 13.8 11.5-14.5 % Platelet Count 364 130-400 K/uL Mean Platelet Volume 9.4 7.4-10.4 fL Sodium Level 143 136-145 mmol/L Potassium Level 3.6 3.5-5.1 mmol/L Chloride Level 113 98-107 mmol/L Carbon Dioxide Level 23 21-32 mmol/L Anion Gap 7.0 3-11 mmol/L Blood Urea Nitrogen 4 7-18 mg/dl Creatinine 0.85 0.60-1.20 mg/dl Est Creatinine Clear Calc Drug Dose 69.8 ml/min Estimated GFR () 96.6 Estimated GFR (Non- 83.3 BUN/Creatinine Ratio 5.1 10-20 Random Glucose 116 70-99 mg/dl Calcium Level 7.8 8.5-10.1 mg/dl Magnesium Level 1.7 1.8-2.4 mg/dl Assessment & Plan 46 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 Passing flatus, no bowel movements. Vitals stable and afebrile. Tolerating clear liquids slowly. Abdomen soft, slightly distended with tenderness of the upper quadrants, no peritonitis or rigidity Plan: Continue conservative management at this time: IV fluids, Pain management, IV Zofran, and clear liquids encourage ambulation and OOB to chair Continue medical management will follow Dr. Calero has seen pt, agrees with above
[2017-07-27 14:53] VITALS: BP 131/76; PULSE 62; TEMP 36.5; O2SAT 99
[2017-07-27] MEDS: ENOXAPARIN 40 MG/0.4 ML SYR SQ SCH (16:55)
[2017-07-27] MEDS: MONTELUKAST SOD 10 MG TAB PO SCH (20:28)
[2017-07-27] MEDS: TRAZODONE HCL 50 MG TAB PO SCH (20:29)
[2017-07-27] MEDS: LINACLOTIDE 290 MCG PO SCH (20:30)
[2017-07-27 23:10] VITALS: BP 104/63; PULSE 79; TEMP 36.6; O2SAT 94
[2017-07-27] MEDS: ALBUTEROL HFA 8 GM INHALER INH PRN (23:29)
[2017-07-28 07:36] VITALS: BP 125/83; PULSE 66; TEMP 36.7; O2SAT 97
[2017-07-28] MEDS: BUPRENORPHINE/NALOXONE 8/2 MG TAB SL SCH ×2 (08:44→21:07)
[2017-07-28] MEDS: BENZONATATE 100MG CAP PO SCH ×3 (08:44→21:00)
[2017-07-28] MEDS: PANTOprazole SOD 40 MG TAB PO SCH (08:45)
[2017-07-28] MEDS: FLUTICASONE/SALMETEROL 250/50 (ADVAIR) 14 PUFF/1 INHALER INH SCH ×2 (08:45→20:56)
[2017-07-28] MEDS: SPIRONOLACTONE 25 MG TAB PO SCH ×2 (08:45→16:21)
[2017-07-28] MEDS: ESCITALOPRAM OXALATE 20 MG TAB PO SCH (08:45)
[2017-07-28] MEDS: NICOTINE 21 MG/24 HR TDSY TD SCH (08:46)
[2017-07-28 09:06] LABS: BUN/CREATININE RATIO 4.3 (10-20); CALCIUM 8.6 mg/dl (8.5-10.1); CREATININE 0.79 mg/dl (0.60-1.20); POTASSIUM 3.3 mmol/L (3.5-5.1)
[2017-07-28] MEDS: D5W AND 1/2NSS 1,000 ML IV SCH (09:29)
--- NOTE | 2017-07-28 11:16 | Progress Note ---
Medicine Progress Note Date & Time of Visit: Jul 28, 2017 at 11:13 . Subjective Passing flatus, but no stool yet. No N/V. Mild abdominal distention. No fever. Minimal occasional cough, no SOB. . Objective Last 8 Hrs Date Time Temp Pulse Resp B/P (MAP) Pulse Ox O2 Delivery O2 Flow Rate FiO2 07/28/17 08:00 Room Air 07/28/17 07:36 36.7 66 20 125/83 (97) 97 Room Air 07/28/17 07:25 Room Air Physical Exam: General- no distress Lungs- clear Heart- RRR, no murmur or gallop Abdomen- moderately distended, + BS, soft, nontender Extremities- no pretibial edema or calf tenderness Neuro- alert Skin- warm & dry . Laboratory Results: Last 24 Hours Test 07/28/17 07:47 Sodium Level 143 mmol/L Potassium Level 3.3 mmol/L Chloride Level 111 mmol/L Carbon Dioxide Level 25 mmol/L Anion Gap 7.0 mmol/L Blood Urea Nitrogen 3 mg/dl Creatinine 0.79 mg/dl Est Creatinine Clear Calc Drug Dose 75.1 ml/min Estimated GFR () 105.5 Estimated GFR (Non- 91.0 BUN/Creatinine Ratio 4.3 Random Glucose 99 mg/dl Calcium Level 8.6 mg/dl Assessment & Plan SMALL BOWEL OBSTRUCTION Probable SBO secondary to adhesions from previous surgeries. Passing flatus, but no stool. Tolerating clear liquids; being advanced to full liquids per General Surgery. Continue to advance diet as tolerated. HYPOKALEMIA Serum potassium as low as 3.2. Replace. Follow. ASTHMA Stable. CHRONIC PAIN SYNDROME / OPIOID ADDICTION Continue Suboxone. VTE PROPHYLAXIS SQ enoxaparin. Ambulate. DISPOSITION Expected discharge to home. Family Medicine follow-up with Dr. Hairston. . Consultants: General Surgery Current Inpatient Medications: Current Inpatient Medications Medications (Trade) Dose Ordered Sig/Arian Route Start Time Stop Time Status Last Admin Dose Admin Ondansetron HCl (Zofran Inj) 4 mg Q4H PRN IV 07/25/17 15:30 08/24/17 15:29 Dextrose/Sodium Chloride 1,000 ml @ 75 mls/hr [id number] IV 07/25/17 15:30 08/24/17 15:29 07/28/17 09:29 75 MLS/HR Morphine Sulfate (MoRPHine SULFATE INJ) 4 mg Q4H PRN IV 07/25/17 16:30 08/08/17 16:29 Future Hold 07/26/17 02:21 4 MG Acetaminophen (Tylenol Tab) 650 mg Q6H PRN PO 07/25/17 16:30 08/24/17 16:29 Albuterol (Ventolin Hfa Inhaler) 2 puffs Q6H PRN INH 07/25/17 16:45 08/24/17 16:44 07/27/17 23:29 2 PUFFS Budesonide (Pulmicort Respules 0.5MG/ 2ML Neb Soln) 1 mg DAILY PRN INH 07/25/17 16:45 08/24/17 16:44 Future Hold Buprenorphine/ Naloxone (Suboxone Tab) 1 tab BID SL 07/25/17 21:00 08/24/17 20:59 07/28/17 08:44 1 TAB Salmeterol Xinafoate/ Fluticasone (Advair Diskus 250/50 Inh) 1 puff BID INH 07/25/17 21:00 08/24/17 20:59 07/28/17 08:45 1 PUFF Montelukast Sodium (Singulair Tab) 10 mg HS PO 07/25/17 21:00 08/24/17 20:59 07/27/17 20:28 10 MG Polyethylene (Miralax Powder Packet) 17 gm DAILY PRN PO 07/25/17 16:45 08/24/17 16:44 Spironolactone (Aldactone Tab) 25 mg BID17 PO 07/25/17 17:00 08/24/17 16:59 07/28/17 08:45 25 MG Trazodone HCl (Desyrel Tab) 50 mg HS PO 07/25/17 21:00 08/24/17 20:59 07/27/17 20:29 50 MG Pantoprazole Sodium (Protonix Tab) 40 mg DAILY PO 07/26/17 09:00 08/25/17 08:59 07/28/17 08:45 40 MG Escitalopram Oxalate (Lexapro Tab) 20 mg DAILY PO 07/26/17 09:00 08/25/17 08:59 07/28/17 08:45 20 MG Benzonatate (Tessalon Perles Cap) 100 mg TID PO 07/26/17 09:00 08/25/17 08:59 07/28/17 08:44 100 MG Diphenhydramine HCl (Benadryl Cap) 25 mg HS PRN PO 07/25/17 21:45 08/24/17 21:44 07/25/17 22:32 25 MG Nicotine (Nicoderm Cq 21MG Patch) 1 patch QAM TD 07/26/17 11:00 08/25/17 10:59 07/28/17 08:46 1 PATCH Miscellaneous (Remove Nicoderm Patch) 1 ea HS N/A 07/26/17 21:00 08/25/17 20:59 07/27/17 20:31 1 EA Enoxaparin Sodium (Lovenox Inj) 40 mg Q24H SQ 07/26/17 16:00 08/25/17 15:59 07/27/17 16:55 40 MG Polyethylene (Miralax Powder Packet) 17 gm DAILY PRN PO 07/26/17 13:45 08/25/17 13:44 Linaclotide (Linzess) 290 mcg HS PO 07/27/17 21:00 08/26/17 20:59 07/27/17 20:30 290 MCG
--- NOTE | 2017-07-28 13:55 | Surgery Progress Note ---
Surgery Progress Note Date of Service Jul 28, 2017. Subjective Post OP Day: HD # 3 + feeling well Had some abdominal pain this morning but "good pain, felt like things were moving through" Still passing flatus, no bowel movement no pain with clear liquids, no nausea or vomiting Slightly bloated Objective Vital Signs: Date Time Temp Pulse Resp B/P (MAP) Pulse Ox O2 Delivery O2 Flow Rate FiO2 07/28/17 08:00 Room Air 07/28/17 07:36 36.7 66 20 125/83 (97) 97 Room Air 07/28/17 07:25 Room Air 07/27/17 23:30 Room Air 07/27/17 23:10 36.6 79 16 104/63 (77) 94 Room Air 07/27/17 15:15 Room Air 07/27/17 14:53 36.5 62 16 131/76 (94) 99 Room Air General Appearance: WD/WN, no apparent distress Head: normocephalic, atraumatic Neck: trachea midline Respiratory/Chest: no respiratory distress, no accessory muscle use Abdomen: soft, no organomegaly, no pulsatile mass, + distended (mildly distended), + tenderness (mild on palpation) Laboratory Results: Results Past 24 Hours Test 07/28/17 07:47 Range/Units Sodium Level 143 136-145 mmol/L Potassium Level 3.3 3.5-5.1 mmol/L Chloride Level 111 98-107 mmol/L Carbon Dioxide Level 25 21-32 mmol/L Anion Gap 7.0 3-11 mmol/L Blood Urea Nitrogen 3 7-18 mg/dl Creatinine 0.79 0.60-1.20 mg/dl Est Creatinine Clear Calc Drug Dose 75.1 ml/min Estimated GFR () 105.5 Estimated GFR (Non- 91.0 BUN/Creatinine Ratio 4.3 10-20 Random Glucose 99 70-99 mg/dl Calcium Level 8.6 8.5-10.1 mg/dl Assessment & Plan Partial SBO - resolving with + flatus, no bowel movement as of yet - tolerating clears without nausea, vomiting, or pain - afebrile, no leukocytosis, no increase in abdominal pain Plan: Continue conservative management, no acute surgical intervention required Will advance to full liquid diet today Continue ambulation continue medical management Dr. Calero has seen and examined patient, agrees with above
[2017-07-28 15:52] VITALS: BP 142/84; PULSE 57; TEMP 36.8; O2SAT 97
[2017-07-28] MEDS: ENOXAPARIN 40 MG/0.4 ML SYR SQ SCH (16:21)
[2017-07-28] MEDS: TRAZODONE HCL 50 MG TAB PO SCH (20:57)
[2017-07-28] MEDS: ALBUTEROL HFA 8 GM INHALER INH PRN (20:57)
[2017-07-28] MEDS: LINACLOTIDE 290 MCG PO SCH (20:59)
[2017-07-28] MEDS: MONTELUKAST SOD 10 MG TAB PO SCH (20:59)
[2017-07-28] MEDS ORDERED: POTASSIUM CHLORIDE 20 MEQ/15 ML UDC PO SCH (21:00)
[2017-07-28 23:00] VITALS: BP 101/61; PULSE 59; TEMP 36.8; O2SAT 97
[2017-07-29 06:11] LABS: HEMATOCRIT 31.7 % (37-47); MEAN CELL VOLUME 96.4 fL (80-100); MEAN CORPUSCULAR HEMOGLOBIN 32.2 pg (25-34); MEAN CORPUSCULAR HGB CONC 33.4 g/dl (32-36); MEAN PLATELET VOLUME 9.6 fL (7.4-10.4); PLATELET COUNT 349 K/uL (130-400); RED BLOOD COUNT 3.29 M/uL (4.2-5.4); WHITE BLOOD COUNT 6.58 K/uL (4.8-10.8)
[2017-07-29 06:42] LABS: BUN/CREATININE RATIO 4.5 (10-20); CALCIUM 8.5 mg/dl (8.5-10.1); CREATININE 0.82 mg/dl (0.60-1.20); POTASSIUM 3.6 mmol/L (3.5-5.1)
[2017-07-29 07:41] VITALS: BP 98/64; PULSE 67; TEMP 36.7; O2SAT 96
[2017-07-29] MEDS ORDERED: POTASSIUM CHLORIDE 10 MEQ TABCR PO SCH (09:00)
[2017-07-29] MEDS: FLUTICASONE/SALMETEROL 250/50 (ADVAIR) 14 PUFF/1 INHALER INH SCH (09:00)
[2017-07-29] MEDS: BUPRENORPHINE/NALOXONE 8/2 MG TAB SL SCH (09:00)
[2017-07-29] MEDS: ALBUTEROL HFA 8 GM INHALER INH PRN (09:00)
[2017-07-29] MEDS: NICOTINE 21 MG/24 HR TDSY TD SCH (09:01)
[2017-07-29] MEDS: ESCITALOPRAM OXALATE 20 MG TAB PO SCH (09:01)
[2017-07-29] MEDS: SPIRONOLACTONE 25 MG TAB PO SCH (09:02)
[2017-07-29] MEDS: BENZONATATE 100MG CAP PO SCH ×2 (09:02→13:40)
[2017-07-29] MEDS: PANTOprazole SOD 40 MG TAB PO SCH (09:02)
--- NOTE | 2017-07-29 11:57 | Surgery Progress Note ---
Surgery Progress Note Date of Service Jul 29, 2017. Subjective + feeling well, + bowel movement, + flatus, No complaints, No nausea, No vomiting Objective Vital Signs: Date Time Temp Pulse Resp B/P (MAP) Pulse Ox O2 Delivery O2 Flow Rate FiO2 07/29/17 07:45 Room Air 07/29/17 07:41 36.7 67 19 98/64 (75) 96 Room Air 07/28/17 23:25 Room Air 07/28/17 23:00 36.8 59 16 101/61 (74) 97 Room Air 07/28/17 15:52 36.8 57 16 142/84 (103) 97 Room Air 07/28/17 15:20 Room Air Abdomen: normal bowel sounds, non tender, non distended Laboratory Results: Results Past 24 Hours Test 07/29/17 05:53 Range/Units White Blood Count 6.58 4.8-10.8 K/uL Red Blood Count 3.29 4.2-5.4 M/uL Hemoglobin 10.6 12.0-16.0 g/dL Hematocrit 31.7 37-47 % Mean Corpuscular Volume 96.4 80-100 fL Mean Corpuscular Hemoglobin 32.2 25-34 pg Mean Corpuscular Hemoglobin Concent 33.4 32-36 g/dl RDW Standard Deviation 47.4 36.4-46.3 fL RDW Coefficient of Variation 13.6 11.5-14.5 % Platelet Count 349 130-400 K/uL Mean Platelet Volume 9.6 7.4-10.4 fL Sodium Level 140 136-145 mmol/L Potassium Level 3.6 3.5-5.1 mmol/L Chloride Level 107 98-107 mmol/L Carbon Dioxide Level 25 21-32 mmol/L Anion Gap 8.0 3-11 mmol/L Blood Urea Nitrogen 4 7-18 mg/dl Creatinine 0.82 0.60-1.20 mg/dl Est Creatinine Clear Calc Drug Dose 72.4 ml/min Estimated GFR () 100.9 Estimated GFR (Non- 87.0 BUN/Creatinine Ratio 4.5 10-20 Random Glucose 92 70-99 mg/dl Calcium Level 8.5 8.5-10.1 mg/dl Assessment & Plan Partial SBO resolved Regular diet If tolerates diet can D/C to home
--- NOTE | 2017-07-29 14:09 | Progress Note ---
Medicine Progress Note Date & Time of Visit: Jul 29, 2017 at 14:08 . Subjective Passed formed stool this morning. No nausea or vomiting. Diet advanced; tolerated low fiber diet for lunch. . Objective Last 8 Hrs Date Time Temp Pulse Resp B/P (MAP) Pulse Ox O2 Delivery O2 Flow Rate FiO2 07/29/17 07:45 Room Air 07/29/17 07:41 36.7 67 19 98/64 (75) 96 Room Air Physical Exam: General- no distress Lungs- clear Heart- RRR, no murmur or gallop Abdomen- nondistended, + BS, soft, nontender Extremities- no pretibial edema or calf tenderness Neuro- alert Skin- warm & dry . Laboratory Results: Last 24 Hours Test 07/29/17 05:53 White Blood Count 6.58 K/uL Red Blood Count 3.29 M/uL Hemoglobin 10.6 g/dL Hematocrit 31.7 % Mean Corpuscular Volume 96.4 fL Mean Corpuscular Hemoglobin 32.2 pg Mean Corpuscular Hemoglobin Concent 33.4 g/dl RDW Standard Deviation 47.4 fL RDW Coefficient of Variation 13.6 % Platelet Count 349 K/uL Mean Platelet Volume 9.6 fL Sodium Level 140 mmol/L Potassium Level 3.6 mmol/L Chloride Level 107 mmol/L Carbon Dioxide Level 25 mmol/L Anion Gap 8.0 mmol/L Blood Urea Nitrogen 4 mg/dl Creatinine 0.82 mg/dl Est Creatinine Clear Calc Drug Dose 72.4 ml/min Estimated GFR () 100.9 Estimated GFR (Non- 87.0 BUN/Creatinine Ratio 4.5 Random Glucose 92 mg/dl Calcium Level 8.5 mg/dl Assessment & Plan SMALL BOWEL OBSTRUCTION Presented to ED with abdominal pain, nausea, decreased stool output. Abdominal films showed dilated loops of small bowel consistent with bowl obstruction or ileus. General Surgery consulted. Probable SBO secondary to adhesions from previous surgeries. Managed conservatively with bowel rest, IV fluids. Diet advanced as tolerated. Passing stool and tolerating diet by discharge. HYPOKALEMIA Serum potassium as low as 3.2. Replaced. K 3.6 day of discharge. Follow. ASTHMA Stable. CHRONIC PAIN SYNDROME / OPIOID ADDICTION Continue Suboxone. VTE PROPHYLAXIS SQ enoxaparin. Ambulating. DISPOSITION Discharge to home. Family Medicine follow-up with Dr. Hairston. . Consultants: General Surgery Current Inpatient Medications: Current Inpatient Medications Medications (Trade) Dose Ordered Sig/Arian Route Start Time Stop Time Status Last Admin Dose Admin Ondansetron HCl (Zofran Inj) 4 mg Q4H PRN IV 07/25/17 15:30 08/24/17 15:29 Morphine Sulfate (MoRPHine SULFATE INJ) 4 mg Q4H PRN IV 07/25/17 16:30 08/08/17 16:29 Future Hold 07/26/17 02:21 4 MG Acetaminophen (Tylenol Tab) 650 mg Q6H PRN PO 07/25/17 16:30 08/24/17 16:29 Albuterol (Ventolin Hfa Inhaler) 2 puffs Q6H PRN INH 07/25/17 16:45 08/24/17 16:44 07/29/17 09:00 2 PUFFS Budesonide (Pulmicort Respules 0.5MG/ 2ML Neb Soln) 1 mg DAILY PRN INH 07/25/17 16:45 08/24/17 16:44 Future Hold Buprenorphine/ Naloxone (Suboxone Tab) 1 tab BID SL 07/25/17 21:00 08/24/17 20:59 07/29/17 09:00 1 TAB Salmeterol Xinafoate/ Fluticasone (Advair Diskus 250/50 Inh) 1 puff BID INH 07/25/17 21:00 08/24/17 20:59 07/29/17 09:00 1 PUFF Montelukast Sodium (Singulair Tab) 10 mg HS PO 07/25/17 21:00 08/24/17 20:59 07/28/17 20:59 10 MG Polyethylene (Miralax Powder Packet) 17 gm DAILY PRN PO 07/25/17 16:45 08/24/17 16:44 Spironolactone (Aldactone Tab) 25 mg BID17 PO 07/25/17 17:00 08/24/17 16:59 07/29/17 09:02 25 MG Trazodone HCl (Desyrel Tab) 50 mg HS PO 07/25/17 21:00 08/24/17 20:59 07/28/17 20:57 50 MG Pantoprazole Sodium (Protonix Tab) 40 mg DAILY PO 07/26/17 09:00 08/25/17 08:59 07/29/17 09:02 40 MG Escitalopram Oxalate (Lexapro Tab) 20 mg DAILY PO 07/26/17 09:00 08/25/17 08:59 07/29/17 09:01 20 MG Benzonatate (Tessalon Perles Cap) 100 mg TID PO 07/26/17 09:00 08/25/17 08:59 07/29/17 13:40 100 MG Diphenhydramine HCl (Benadryl Cap) 25 mg HS PRN PO 07/25/17 21:45 08/24/17 21:44 07/25/17 22:32 25 MG Nicotine (Nicoderm Cq 21MG Patch) 1 patch QAM TD 07/26/17 11:00 08/25/17 10:59 07/29/17 09:01 1 PATCH Miscellaneous (Remove Nicoderm Patch) 1 ea HS N/A 07/26/17 21:00 08/25/17 20:59 07/28/17 20:57 1 EA Enoxaparin Sodium (Lovenox Inj) 40 mg Q24H SQ 07/26/17 16:00 08/25/17 15:59 07/28/17 16:21 40 MG Polyethylene (Miralax Powder Packet) 17 gm DAILY PRN PO 07/26/17 13:45 08/25/17 13:44 Linaclotide (Linzess) 290 mcg HS PO 07/27/17 21:00 08/26/17 20:59 07/28/17 20:59 290 MCG Potassium Chloride (Klor-Con M10) 20 meq BID PO 07/29/17 09:00 08/28/17 08:59 07/29/17 11:34 20 MEQ
--- NOTE | 2017-07-29 14:16 | Discharge Instructions ---
Discharge Instructions Date of Service Jul 29, 2017. Admission Reason for Admission: abdominal pain . Discharge Discharge Diagnosis / Problem: partial bowel obstruction Discharge Goals Goal(s): Decrease discomfort, Improve disease control Activity Recommendations Activity Limitations: resume your previous activity . Instructions / Follow-Up Instructions / Follow-Up APPOINTMENTS: FAMILY MEDICINE Dr. Hairston. Office will contact you with appointment. OTHER INSTRUCTIONS: Drink plenty of fluids. Use MiraLax once or twice a day as necessary. Avoid excessive fiber that is hard to digest (like large salads). Seek medical attention if you have: * temperature above 101 * abdominal pain, nausea, vomiting * unable to move bowels for more than 3 days * diarrhea, dark stools or bloody stools * any unanswered questions or concerns Call 911 if symptoms are severe. Call if you have any questions or problems. My cell # is [phone]. You can also reach a [facility] hospitalist on duty at [facility] 24 hours a day by calling [phone]. Please take good care of yourself. Koko Villegas . Current Hospital Diet Patient's current hospital diet: Low Fiber Diet Discharge Diet Recommended Diet: Low Fiber Diet Pending Studies Studies pending at discharge: no Medical Emergencies . Who to Call and When: Medical Emergencies: If at any time you feel your situation is an emergency, please call 911 immediately. . Non-Emergent Contact Non-Emergency issues call your: Primary Care Provider, Hospital Doctor . . "Provider Documentation" section prepared by Koko Villegas. . VTE Core Measure Inpt VTE Proph given/why not?: Enoxaparin (Lovenox)[facility] Drug Monitoring Program Search Results: patient reviewed within database, no issues identified Drug Monitoring Findings: appropriate prescribing of Suboxone .
[2017-07-29 15:05] VITALS: BP 98/64; PULSE 67; TEMP 36.7; O2SAT 96
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
== END 2017-07-29 15:45 | disposition home or self-care (01) | DRG 389 ==
LOC: C.EDB 12:31 → C.MSW 15:15 → ENRESERV 15:31
PROVIDERS: ADMIT Hospitalist; ATTEND Hospitalist
DX: K56.51 Intestinal adhesions [bands], with partial obstruction (principal); F11.20 Opioid dependence, uncomplicated; E87.6 Hypokalemia; G89.4 Chronic pain syndrome; J45.909 Unspecified asthma, uncomplicated; F32.9 Major depressive disorder, single episode, unspecified; F17.200 Nicotine dependence, unspecified, uncomplicated; Z51.81 Encounter for therapeutic drug level monitoring; Z79.899 Other long term (current) drug therapy; Z83.3 Family history of diabetes mellitus

== ENCOUNTER → 2017-08-20 | Outpatient (CLI) | payer BC, OTHER ==
[~2017-08-20] MED LIST changes: -ALBU1AER9 INH; -ALBU1NEB10 NEB; -ESCI1TAB10 PO; +ESCI1TAB18 PO; -FLUT0.0529 NAE; +FLUT50SP37 NAE; -OMEP40CA36 PO; +OMEP40CA41 PO; +PRVIN525 INH; +VNTHFA/IN INH
--- NOTE | 2017-08-20 10:21 | DIAGNOSTIC IMAGING REPORT ---
GI SERIES AND SMALL BOWEL CLINICAL HISTORY: HX OF SMALL BOWEL OBSTRUCTION COMPARISON STUDY: CT abdomen and pelvis 07/19/2016 FLUOROSCOPY TIME: 2. Minutes. FINDINGS: Patient initiated swallowing function well. The esophagus is normal in course and caliber. Gastro esophageal junction is normal. Size and configuration stomach are normal. Duodenal bulb fills well. Duodenal sweep is unremarkable. Mucosal pattern and transit time throughout small bowel are within normal limits. Spot films the terminal ileum are within normal limits. IMPRESSION: Normal study The above report was generated using voice recognition software. It may contain grammatical, syntax or spelling errors. Electronically signed by: Too Kevin M.D. 08/20/2017 10:19 AM Dictated Date/Time: 08/20/2017 10:17 AM
== END | disposition home or self-care (01) ==
LOC: C.RAD 08:26
PROVIDERS: ATTEND Surgery
DX: Z87.19 Personal history of other diseases of the digestive system (principal)

== ENCOUNTER → 2017-10-04 | Outpatient (CLI) | payer BC, OTHER | END | disposition home or self-care (01) | LOC: C.LAB 11:35 | PROVIDERS: ATTEND Psychiatry & Neurology Psychiatry | DX: F11.99 Opioid use, unspecified with unspecified opioid-induced disorder (principal) ==

== ENCOUNTER 2017-11-04 09:23 | Emergency (ER) | payer BC, OTHER ==
[~2017-11-04] VITALS: Ht 160 cm; Wt 56.6 kg
[2017-11-04 09:32] VITALS: Ht 160 cm; Wt 56.6 kg
[2017-11-04] MEDS ORDERED: PRED10TA PO (09:45)
[2017-11-04] MEDS ORDERED: ACETAMINOPHEN 500 MG TAB PO STA (10:00)
[2017-11-04] MEDS ORDERED: KETOROLAC TROMETHAMINE 30 MG/ML VIAL IV STA (10:00)
[2017-11-04] MEDS ORDERED: PIPERACILLIN/TAZOBACTAM 4.5 GM/100ML D5W IV STA (10:03)
--- NOTE | 2017-11-04 10:12 | EMERGENCY ROOM VISIT NOTE ---
History Report prepared by Diana: Cuauhtemoc Sellers Under the Supervision of: Dr. Fernando Dawkins M.D. First contact with patient: 09:55 Chief Complaint: CHEST PAIN Stated Complaint: SEVERE UPPER LEFT CHEST PAIN Nursing Triage Summary: pt to the ED with c/o left sided chest pain that gets worse with deep breathing and a cough pt states she had the flu recently and has a dry cough History of Present Illness The patient is a 47 year old female who presents to the Emergency Room with complaints of constant left sided chest pain that began last night. The patient states that this pain started very mildly last night, and then woke her up from sleep this morning. She rates her current discomfort at an 8/10 in severity. The pain is worsened with deep inspiration and coughing. The patient first developed flu-like symptoms last week, which was confirmed with an influenza swab. She then developed a cough on Wednesday, 6 days ago. The cough is persistent and non-producing at this time. She has had pneumonia in the past, but has no cardiac or clotting history. She also denies any family history of clotting. The patient does have a history of splenectomy and gets pneumonia vaccinations annually. Upon reevaluation, the patient mentioned to me that she was started on Prednisone by her PCP on Wednesday, 6 days ago. Source of History: patient Onset: Last night Position: chest (left) Symptom Intensity: 8/10 Timing: constant Modifying Factors (Worsening): breathing (deep inspiration) Associated Symptoms: + cough Review of Systems See HPI for pertinent positives & negatives. A total of 10 systems reviewed and were otherwise negative. Past Medical & Surgical Medical Problems: (1) Allergic rhinitis (2) Anxiety (3) Asthma, Unspecified (4) Chronic neck and back pain (5) Gastroparesis (6) Hiatal hernia (7) History of Carter's esophagus (8) History of GI bleed (9) History of migraine (10) History of peritonitis (11) History of small bowel obstruction (12) Tobacco Use Disorder Surgical Problems: (1) H/O section (2) H/O laparoscopy (3) History of bronchoscopy (4) Hx of splenectomy (5) Status post tonsillectomy and adenoidectomy Family History Diabetes mellitus FH: heart disease Social History Smoking Status: Never Smoker Drug Use: none, other Marital Status: Housing Status: lives with family Occupation Status: employed Current/Historical Medications Scheduled Azithromycin (Zithromax Z-Rikki), 0 PO UD Buprenorphine Hcl-Naloxone Hcl (Suboxone 8-2 Mg), 8 MG SL BID Escitalopram Oxalate (Lexapro), 20 MG PO DAILY Fexofenadine Hcl (Olivia), 180 MG PO DAILY Fluticasone Prop/Salmeterol (Advair Diskus 250/50 60 Dose), 1 PUFFS INH BID Fluticasone Propionate (Nasal) (Clarispray), 2 SPRAYS NINA DAILY Linaclotide (Linzess), 290 MCG PO DAILY Montelukast Sod (Montelukast Sodium), 10 MG PO HS Omeprazole (Prilosec), 40 MG PO DAILY Potassium Chloride (Potassium Chloride Er), 2 CAP PO DAILY Prednisone (Prednisone), 10 MG PO DIRECTED Spironolactone (Spironolactone), 25 MG PO BID Trazodone Hcl (Trazodone), 50 MG PO HS Scheduled PRN Albuterol Hfa (Ventolin Hfa), 2-4 PUFFS INH Q6H PRN for Shortness of Breath Albuterol Sulf (Albuterol Sulfate), 1 VIAL INH Q4 PRN for SOB/Wheezing Azelastine Hcl (Astelin Nasal [place]), 2 SPRAYS NA BID PRN for Nasal Congestion Budesonide (Budesonide), 2 ML NEB DAILY PRN for SOB/Wheezing Ondansetron (Ondansetron HCl), 4 MG PO Q6H PRN for Nausea Polyethylene (Miralax), 17 GM PO DAILY PRN for Constipation Allergies Coded Allergies: Psyllium (Verified Allergy, Severe, RESP DISTRESS, 11/04/17) POLLEN (Verified Allergy, Intermediate, "SEASONAL ALLERGIES", 11/04/17) Metoclopramide (Verified Allergy, Unknown, ?, 11/04/17) Hydroxyzine (Verified Adverse Reaction, Intermediate, ANXIETY, 11/04/17) Physical Exam Vital Signs Date Time Temp Pulse Resp B/P (MAP) Pulse Ox O2 Delivery O2 Flow Rate FiO2 11/04/17 12:10 37.2 61 18 124/75 99 Room Air 11/04/17 10:42 62 20 151/96 98 Room Air 11/04/17 09:32 36.8 71 18 158/91 99 Room Air Physical Exam GENERAL: Patient is in mild acute distress, secondary to her pain. HEENT: No acute trauma, normocephalic atraumatic, mucous membranes moist, no nasal congestion, no scleral icterus. NECK: No stridor, no adenopathy, no meningismus, trachea is midline. LUNGS: There are crackles at both bases, more so on the left. No wheezing. Breath sounds are equal. HEART: 1/6 systolic murmur with a regular rate and rhythm. CHEST: There is tenderness over the left chest wall just superior to the breast. This pain worsens with breathing and movement. ABDOMEN: Soft, nontender, bowel sounds positive, no hernias, no peritonitis. EXTREMITIES: No cyanosis or edema, full range of motion of all the joints without pain or difficulty, no signs for acute trauma. NEUROLOGIC: Oriented x 3, no acute motor or sensory deficits, no focal weakness. SKIN: No rash, no jaundice, no diaphoresis. Medical Decision & Procedures ER Provider Diagnostic Interpretation: Radiology results as stated below per my review and radiologist interpretation: (CHEST FOR PE) ANGIO WITH CT DOSE: 245.28 mGycm HISTORY: 47 years-old Female presents with acute atypical chest pain, shortness of breath and severe upper left-sided chest pain TECHNIQUE: Multiple CTA images of the chest were obtained after the intravenous administration of 88 ml Optiray 320. Coronal and sagittal MIPS were obtained from the axial data set and were submitted for review. A dose lowering technique was utilized adhering to the principles of ALARA. COMPARISON: Chest radiograph of same day, CT chest 05/10/2009. FINDINGS: CTA: The heart is normal in size without pericardial effusion. The thoracic aorta is normal in both course and caliber without aneurysm or dissection identified. The imaged IVC appears unremarkable. The pulmonary arterial tree is opacified to level of the proximal subsegmental branches and demonstrates no focal filling defects to suggest pulmonary thromboembolic disease. CT CHEST: No dominant thyroid nodule identified. No pathologically enlarged lymph nodes about the chest. There is no pneumothorax, pleural effusion, focal airspace consolidation or overt pulmonary edema. Mild biapical pleural-parenchymal scarring. No focal abnormality of the right upper lung identified to correlate with the questioned opacity seen on chest radiograph of same day. This finding was likely secondary to composite pulmonary vasculature within this distribution. Minimal linear subsegmental atelectasis/scarring of the inferior segment lingula. The central airways are patent. Surgical clips of the left upper abdomen are compatible with prior splenectomy. No acute abnormality of the imaged abdomen. Soft tissues are unremarkable. The bones appear to be intact. Mild levoscoliosis of the mid to lower thoracic spine. IMPRESSION: 1. No acute intrathoracic abnormality identified, specifically no acute aortic pathology or evidence of pulmonary thromboembolic disease. 2. No lobar airspace consolidation or pathologic adenopathy. 3. Prior splenectomy. The above report was generated using voice recognition software. It may contain grammatical, syntax or spelling errors. Electronically signed by: Umberto Mckeon M.D. 11/04/2017 11:52 AM Dictated Date/Time: 11/04/2017 11:46 AM CHEST ONE VIEW PORTABLE CLINICAL HISTORY: Chest pain. COMPARISON STUDY: Chest radiograph July 25, 2017. FINDINGS: Left upper quadrant/lower hemithorax surgical clips are noted. No pneumothorax or pleural effusion is noted. There is no evidence for pulmonary edema. Cardiac size is normal. Mediastinal contours are normal. The patient is mildly rotated. Apparent 1.8 cm nodular density within the lateral right mid to upper lung is noted. IMPRESSION: 1. No acute cardiopulmonary findings. 2. 1.8 cm lateral right lung opacity which likely reflects artifact or normal vessels. Follow-up nonemergent PA and shallow oblique radiographs of the chest are recommended in 2 weeks. Electronically signed by: Jeff Anaya M.D. 11/04/2017 10:21 AM Dictated Date/Time: 11/04/2017 10:15 AM Laboratory Results 11/04/17 10:30 11/04/17 10:30 Test 11/04/17 10:30 11/04/17 10:40 Red Blood Count 3.90 M/uL (4.2-5.4) Mean Corpuscular Volume 92.6 fL (80-100) Mean Corpuscular Hemoglobin 32.3 pg (25-34) Mean Corpuscular Hemoglobin Concent 34.9 g/dl (32-36) RDW Standard Deviation 46.1 fL (36.4-46.3) RDW Coefficient of Variation 13.9 % (11.5-14.5) Mean Platelet Volume 10.0 fL (7.4-10.4) Prothrombin Time 9.8 SECONDS (9.0-12.0) Prothromb Time International Ratio 0.9 (0.9-1.1) Activated Partial Thromboplast Time 22.2 SECONDS (21.0-31.0) Partial Thromboplastin Ratio 0.9 Anion Gap 8.0 mmol/L (3-11) Est Creatinine Clear Calc Drug Dose 61.8 ml/min Estimated GFR () 83.8 Estimated GFR (Non- 72.3 BUN/Creatinine Ratio 19.5 (10-20) Calcium Level 8.8 mg/dl (8.5-10.1) Total Bilirubin 0.4 mg/dl (0.2-1) Aspartate Amino Transf (AST/SGOT) 17 U/L (15-37) Alanine Aminotransferase (ALT/SGPT) 23 U/L (12-78) Alkaline Phosphatase 82 U/L (45-117) Troponin I 0.034 ng/ml (0-0.045) Total Protein 7.9 gm/dl (6.4-8.2) Albumin 4.0 gm/dl (3.4-5.0) Globulin 3.9 gm/dl (2.5-4.0) Albumin/Globulin Ratio 1.0 (0.9-2) Bedside D-Dimer > 450 ng/mlFEU (0-450) Laboratory results reviewed by me. Medications Administered Medications (Trade) Dose Ordered Sig/Arian Route Start Time Stop Time Status Last Admin Dose Admin Ketorolac Tromethamine (Toradol Inj) 30 mg NOW STAT IV 11/04/17 10:00 11/04/17 10:03 DC 11/04/17 10:34 30 MG Acetaminophen (Tylenol Tab) 1,000 mg NOW STAT PO 11/04/17 10:00 11/04/17 10:03 DC 11/04/17 10:34 1,000 MG Piperacillin Sod/ Tazobactam Sod (Zosyn Iv) 4.5 gm NOW STAT IV 11/04/17 10:03 11/04/17 10:04 DC 11/04/17 10:36 4.5 GM Potassium Chloride (Klor-Con M10) 40 meq NOW STAT PO 11/04/17 11:52 11/04/17 11:53 DC 11/04/17 12:09 40 MEQ Azithromycin (Zithromax Tab) 500 mg NOW STAT PO 11/04/17 12:24 11/04/17 12:25 DC 11/04/17 12:30 500 MG ECG Per My Interpretation Indication: chest pain Rate (beats per minute): 59 Rhythm: sinus bradycardia Findings: 1st degree AV block, nonspecific-ST abn, other (No PVCs ) Comparison ECG Date: 07/25/2017 Change: no significant change ED Course 0957: The patient was evaluated in room C10. A complete history and physical exam was performed. 1000: Ordered Tylenol Tablet 1000 mg PO, Toradol 30 mg IV. 1003: Ordered Zosyn 4.5 gm IV. 1152: Ordered Potassium Chloride 40 meq PO. 1205: Upon reevaluation, the patient mentioned to me that she was started on Prednisone by her PCP on Wednesday, 6 days ago. 1211: Reevaluated the patient. Discussed results and discharge instructions: she verbalized understanding and agreement. The patient is ready for discharge. 1224: Ordered Azithromycin 500 mg PO. Medical Decision Differential Diagnosis includes; pneumonia, pulmonary embolism, pneumothorax, aortic dissection, myocardial infarction, bronchitis, rib fracture, musculoskeletal pain. There is a moderate leukocytosis, this could be consistent with infection or possibly, her steroid use. No concerning anemia. No kidney failure. Potassium low at 2.5. No hepatitis. EKG shows a sinus bradycardia with a first -degree AV block. No acute ischemia. Cardiac enzyme testing times one is not consistent with acute cardiac injury. Chest x-ray does not show pneumonia, mediastinal widening or pneumothorax. D-dimer testing was positive. Chest CT does not show PE, no evidence for pneumonia. The patient presents with pleuritic left-sided chest pain. She has been coughing and was diagnosed with the flu last week. She is currently taking prednisone. Her chest pain does worsen with movement and also with palpation of the chest wall. The patient received IV Toradol, oral Tylenol and IV Zosyn. The Zosyn was given empirically for the possibility of pneumonia. She eventually received oral potassium and oral Zithromax. The patient does not want anything stronger for pain. Her pain appears musculoskeletal and or possibly pleuritic. Clinically, she appears to have bronchitis. Given her splenectomy history, I am going to prescribe Zithromax for antibiotic coverage. She states this is one of the only antibiotics she can tolerate. She will continue her prednisone. Eliq-eil-ruiwvyp pain medication, heat was suggested. If worsening, she will return. Medication Reconcilliation Current Medication List: was personally reviewed by me Blood Pressure Screening Patient's blood pressure: Elevated blood pressure Blood pressure disposition: Elevated BP felt to be situational Impression Primary Impression: Left sided chest pain Additional Impressions: Bronchitis Hx of splenectomy Hypokalemia Scribe Attestation The scribe's documentation has been prepared under my direction and personally reviewed by me in its entirety. I confirm that the note above accurately reflects all work, treatment, procedures, and medical decision making performed by me. Departure Information Dispostion Home / Self-Care Prescriptions Potassium Chloride (POTASSIUM CHLORIDE ER) 10 Meq Cap 2 CAP PO DAILY for 4 Days, #8 CAP Prov: Fernando Dawkins M.D. 11/04/17 Azithromycin (ZITHROMAX Z-RIKKI) 250 Mg Tab 0 PO UD, #1 PKT Prov: Fernando Dawkins M.D. 11/04/17 Referrals Aixa Hairston M.D. (PCP) Forms Call Back Authorization, HOME CARE DOCUMENTATION FORM, IMPORTANT VISIT INFORMATION Patient Instructions My [facility] Additional Instructions continue the prednisone motrin and or tylenol for pain heat to the area may help zithromax as directed potassium daily for 4 more days rest fluids return for worsening symptoms or fever Problem Qualifiers
--- NOTE | 2017-11-04 10:22 | DIAGNOSTIC IMAGING REPORT ---
CHEST ONE VIEW PORTABLE CLINICAL HISTORY: Chest pain. COMPARISON STUDY: Chest radiograph July 25, 2017. FINDINGS: Left upper quadrant/lower hemithorax surgical clips are noted. No pneumothorax or pleural effusion is noted. There is no evidence for pulmonary edema. Cardiac size is normal. Mediastinal contours are normal. The patient is mildly rotated. Apparent 1.8 cm nodular density within the lateral right mid to upper lung is noted. IMPRESSION: 1. No acute cardiopulmonary findings. 2. 1.8 cm lateral right lung opacity which likely reflects artifact or normal vessels. Follow-up nonemergent PA and shallow oblique radiographs of the chest are recommended in 2 weeks. Electronically signed by: Jeff Anaya M.D. 11/04/2017 10:21 AM Dictated Date/Time: 11/04/2017 10:15 AM
[2017-11-04 10:51] LABS: HEMATOCRIT 36.1 % (37-47); HEMOGLOBIN 12.6 g/dL (12.0-16.0); MEAN CELL VOLUME 92.6 fL (80-100); MEAN CORPUSCULAR HEMOGLOBIN 32.3 pg (25-34); MEAN CORPUSCULAR HGB CONC 34.9 g/dl (32-36); PLATELET COUNT 551 K/uL (130-400); RED CELL DISTRIBUTION WIDTH CV 13.9 % (11.5-14.5); RED CELL DISTRIBUTION WIDTH SD 46.1 fL (36.4-46.3)
[2017-11-04 11:04] LABS: INR 0.9 (0.9-1.1); PTT PATIENT 22.2 SECONDS (21.0-31.0)
[2017-11-04 11:15] LABS: CALCIUM 8.8 mg/dl (8.5-10.1); CREATININE 0.95 mg/dl (0.60-1.20); POTASSIUM 2.5 mmol/L (3.5-5.1)
[2017-11-04 11:17] LABS: TOTAL PROTEIN 7.9 gm/dl (6.4-8.2)
[2017-11-04] MEDS ORDERED: OPTIRAY 320 IV PRN (11:45)
[2017-11-04] MEDS ORDERED: POTASSIUM CHLORIDE 10 MEQ TABCR PO STA (11:52)
--- NOTE | 2017-11-04 11:54 | DIAGNOSTIC IMAGING REPORT ---
(CHEST FOR PE) ANGIO WITH CT DOSE: 245.28 mGycm HISTORY: 47 years-old Female presents with acute atypical chest pain, shortness of breath and severe upper left-sided chest pain TECHNIQUE: Multiple CTA images of the chest were obtained after the intravenous administration of 88 ml Optiray 320. Coronal and sagittal MIPS were obtained from the axial data set and were submitted for review. A dose lowering technique was utilized adhering to the principles of ALARA. COMPARISON: Chest radiograph of same day, CT chest 05/10/2009. FINDINGS: CTA: The heart is normal in size without pericardial effusion. The thoracic aorta is normal in both course and caliber without aneurysm or dissection identified. The imaged IVC appears unremarkable. The pulmonary arterial tree is opacified to level of the proximal subsegmental branches and demonstrates no focal filling defects to suggest pulmonary thromboembolic disease. CT CHEST: No dominant thyroid nodule identified. No pathologically enlarged lymph nodes about the chest. There is no pneumothorax, pleural effusion, focal airspace consolidation or overt pulmonary edema. Mild biapical pleural-parenchymal scarring. No focal abnormality of the right upper lung identified to correlate with the questioned opacity seen on chest radiograph of same day. This finding was likely secondary to composite pulmonary vasculature within this distribution. Minimal linear subsegmental atelectasis/scarring of the inferior segment lingula. The central airways are patent. Surgical clips of the left upper abdomen are compatible with prior splenectomy. No acute abnormality of the imaged abdomen. Soft tissues are unremarkable. The bones appear to be intact. Mild levoscoliosis of the mid to lower thoracic spine. IMPRESSION: 1. No acute intrathoracic abnormality identified, specifically no acute aortic pathology or evidence of pulmonary thromboembolic disease. 2. No lobar airspace consolidation or pathologic adenopathy. 3. Prior splenectomy. The above report was generated using voice recognition software. It may contain grammatical, syntax or spelling errors. Electronically signed by: Umberto Mckeon M.D. 11/04/2017 11:52 AM Dictated Date/Time: 11/04/2017 11:46 AM
[2017-11-04 12:10] VITALS: BP 124/75; PULSE 61; TEMP 37.2; O2SAT 99
[2017-11-04] MEDS ORDERED: AZITHROMYCIN 250 MG TAB PO STA (12:24)
[2017-11-04] MEDS ORDERED: AZITTAB PO (12:27)
[2017-11-04] MEDS ORDERED: POTA1CAP2 PO (12:28)
== END 2017-11-04 12:38 | disposition home or self-care (01) ==
LOC: C.EDB 09:25 → C.EDC 12:38
DX: R07.9 Chest pain, unspecified (principal); J40 Bronchitis, not specified as acute or chronic; E87.6 Hypokalemia; J45.909 Unspecified asthma, uncomplicated; Z79.899 Other long term (current) drug therapy; Z88.8 Allergy status to other drugs, medicaments and biological substances

== ENCOUNTER → 2018-01-20 | Outpatient (CLI) | payer BC, OTHER ==
[~2018-01-20] MED LIST changes: +POTA1CAP2 PO; +PRED10TA PO
[2018-01-20 13:40] LABS: ALBUMIN 4.1 gm/dl (3.4-5.0); ALKALINE PHOSPHATASE 76 U/L (45-117); ALT/SGPT 20 U/L (12-78); AST/SGOT 29 U/L (15-37); TOTAL PROTEIN 7.6 gm/dl (6.4-8.2)
== END | disposition home or self-care (01) ==
LOC: C.LAB 12:27
PROVIDERS: ATTEND Psychiatry & Neurology Psychiatry
DX: Z79.899 Other long term (current) drug therapy (principal)

== ENCOUNTER 2023-02-12 11:54 | Inpatient (IN) ==
[2023-02-12] MEDS ORDERED: ONDANSETRON INJ 2 MG/ML 2 ML VIAL IV STA (12:02)
[2023-02-12] MEDS ORDERED: KETOROLAC TROMETHAMINE 15 MG/ML VIAL IV STA (12:02)
[2023-02-12] MEDS ORDERED: SODIUM CHLORIDE 0.9% 1000ML 1,000 ML IV ONE (12:02)
[2023-02-12 12:39] LABS: Basophils # (auto) 0.05 K/uL (0-0.2); Basophils % (auto) 0.5 %; Eosinophils # (auto) 0.46 K/uL (0-0.50); Eosinophils % (auto) 4.2 %; Hemoglobin 12.5 g/dl (12.0-16.0); Immature Granulocytes # (auto) 0.05 K/uL (0.01-0.20); Immature Granulocytes % (auto) 0.5 %; Lymphocytes # (auto) 1.95 K/uL (1.2-3.4); Lymphocytes % (auto) 17.9 %; Mean Corpuscular Hgb Conc 33.8 g/dL (32.0-36.0); Mean Corpuscular Volume 94.6 fL (80.0-100.0); Mean Platelet Volume 9.3 fL (9.4-12.4); Monocytes # (auto) 0.77 K/uL (0.11-0.59); Monocytes % (auto) 7.1 %; Neutrophils # (auto) 7.59 K/uL (1.40-6.50); Neutrophils % (auto) 69.8 %; Platelet Count 614 K/uL (130-400); RDW Coefficient of Variation 13.2 % (11.5-14.5); RDW Standard Deviation 45.9 fL (36.4-46.3); Red Blood Count 3.91 M/uL (4.20-5.40); White Blood Count 10.87 K/ul (4.8-10.8)
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
[2023-02-12 12:58] LABS: Albumin Level 4.2 gm/dl (3.4-5.0); BUN Creatinine Ratio 16.7 (10-20); Bilirubin Direct 0.1 mg/dl (0-0.2); Bilirubin,Total 0.3 mg/dl (0.2-1.0); Calcium 9.4 mg/dl (8.6-10.3); Creatinine Clr Calc Pharmacy 57.9 ml/min; Est GFR (African American) 79.9 ml/min; Total Protein 6.6 gm/dl (6.0-8.3)
[2023-02-12] MEDS ORDERED: OPTIRAY 320 100ml IV ONE (14:02)
--- NOTE | 2023-02-12 14:32 | CT Scan Report ---
ABDOMEN AND PELVIS CT WITH IV CONTRAST CT DOSE: 463.09 mGy.cm HISTORY: Acute generalized abdominal pain ro sbo TECHNIQUE: Multiaxial CT images of the abdomen and pelvis were performed following the IV administrat ion of 92 cc of Optiray, A dose lowering technique was utilized adhering to the principles of ALARA. COMPARISON STUDY: 07/19/2016. FINDINGS: Clear lung bases. No pneumatosis or pneumoperitoneum. Prior splenectomy. Unremarkable pancreas, gallb ladder, adrenal glands and liver. Patency of the hepatic and portal veins. Subcentimeter hypodensity in the superior pole left kidney, too small to characterize. There is no hydronephrosis. Decompressed bladder with mild wall thickening. Heterogeneity of the uterus. No adnexal mass lesions. Atheroscler osis of the aorta without aneurysm. No pathologically enlarged lymph nodes identified. Trace free pel jacquelyn fluid. Scattered pelvic fragments throughout the colon. Moderate fecal retention. The appendix is not defini tively seen. Scattered fluid filled loops of large and small bowel. Abdominal small bowel bowel dilat ion measures up to 3.2 cm. No discrete transition point identified. Several loops of small bowel demo nstrate mild circumferential wall thickening. Mild interval of edema. Small midline upper abdominal w all hernia with diastases of 1.4 cm. Mild interloop edema. Degenerative changes of the spine, pelvis and hips. IMPRESSION: 1. Fluid-filled loops of large and small bowel with areas of small bowel wall thickening. Additionall y, a few loops of small bowel are mildly dilated. Mild associated interloop edema with trace ascites. Constellation of findings is suggestive of a nonspecific enteritis/diarrheal illness. A low-grade sm all bowel obstruction could appear similarly. Follow-up recommended. 2. No pneumoperitoneum. 3. Additional findings as above. ACT 112: Negative or not required by law. The above report was generated using voice recognition software. It may contain grammatical, syntax o r spelling errors. Electronically signed by: Alli Mckeon M.D. 02/12/2023 2:31 PM
[2023-02-12] MEDS ORDERED: fentaNYL citrate PF 100 MCG/2 ML VIAL IV STA (14:58)
[2023-02-12 15:04] LABS: Appearance Urine Clear (Clear); Bilirubin Urine Negative (Negative); Blood Urine Negative (Negative); Color Urine Yellow; Glucose Urine UA Negative (Negative); Ketones Urine Trace (Negative); Leukocyte Esterase Urine Negative (Negative); Nitrite Urine Negative (Negative); Protein Urine Negative (Negative); Specific Gravity Urine 1.025 (1.000-1.030); Urobilinogen Urine Negative (Negative)
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
[2023-02-12] MEDS: NICOTINE 21 MG/24 HR TDSY TD SCH (17:11)
[2023-02-12] MEDS: LACTATED RINGER'S 1,000 ML IV SCH ×3 (17:12→23:26)
[2023-02-12] MEDS ORDERED: KETOROLAC TROMETHAMINE 15 MG/ML VIAL IV PRN (17:55)
[2023-02-12] MEDS ORDERED: ONDANSETRON INJ 2 MG/ML 2 ML VIAL IV PRN (17:55)
[2023-02-12] MEDS ORDERED: ALBUTEROL HFA 8 GM INHALER INH PRN (17:55)
[2023-02-12] MEDS ORDERED: AZELASTINE HCL 0.1% NASAL 200 SPRAYS/27,400 MCG BTL SCH (21:00)
[2023-02-13] MEDS: LACTATED RINGER'S 1,000 ML IV SCH ×3 (00:53→13:08)
[2023-02-13] MEDS: ACETAMINOPHEN 1,000 MG/100 ML VIAL IV PRN ×2 (06:16→15:27)
[2023-02-13 07:03] LABS: Hematocrit (blood only) 30.6 % (37.0-47.0); Hemoglobin 9.9 g/dl (12.0-16.0); Mean Corpuscular Hemoglobin 31.6 pg (25.0-34.0); Mean Corpuscular Hgb Conc 32.4 g/dL (32.0-36.0); Mean Corpuscular Volume 97.8 fL (80.0-100.0); Mean Platelet Volume 9.4 fL (9.4-12.4); Platelet Count 481 K/uL (130-400); RDW Coefficient of Variation 13.2 % (11.5-14.5); RDW Standard Deviation 46.8 fL (36.4-46.3); Red Blood Count 3.13 M/uL (4.20-5.40); White Blood Count 7.86 K/ul (4.8-10.8)
[2023-02-13 07:05] LABS: BUN Creatinine Ratio 13.8 (10-20); Calcium 8.3 mg/dl (8.6-10.3); Creatinine Clr Calc Pharmacy 63.9 ml/min; Est GFR (Non-African American) 77.7 ml/min; Potassium 3.9 mmol/L (3.5-5.1)
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
[2023-02-13 07:58] LABS: Magnesium 1.8 mg/dl (1.7-2.4)
[2023-02-13 08:04] LABS: Phosphorus 3.6 mg/dl (2.5-4.9)
[2023-02-13] MEDS: FLUTICASONE/VILANTEROL 200/25MCG 14 PUFFS/INHALER INH SCH (09:59)
[2023-02-13] MEDS: BUPRENORPHINE/NALOXONE 8/2 MG TAB SL SCH (10:28)
[2023-02-13] MEDS: NICOTINE 21 MG/24 HR TDSY TD SCH (10:28)
--- NOTE | 2023-02-13 10:31 | Surgery Progress Note ---
Date of Service February 13, 2023 Assessment & Plan (1) Partial small bowel obstruction: Plan: Lowe grade SBO. Miguelina reports that she is feeling a little bit better today. She did have a small bowel movement this AM and is passing flatus. No plans for surgical inter vention at this time, will continue with conservative measures as she is slowly improving. Will continue to hold off on NG tube at this time. Ambulation in hallway today. Continue sips and chips at this time. General Surgery will continue to follow. Admission and Anticipated Discharge Date Admission Date: February 12, 2023 Supervising Physician Co-Signing Physician Notes I personally saw and evaluated the patient with Naina Ramirez PA-C and agree with the assessment and plan. 52-year-old female with small bowel obstruction versus enteritis She did have a small bowel movement this morning but is still having some pain Her abdominal exam remains fairly benign and her vital signs are normal We will keep her n.p.o. again today If she has more meaningful return of bowel function later today and her pain improves, could try clears later today Surgery team will follow Subjective Miguelina is resting in chair at bedside, reports that she did have a small bowel movement this AM. She is passing flatus. She continues to have some abdominal discomfort, but reports that this improved since yesterday. Review of Systems Constitutional: no fever and no chills Respiratory: no dyspnea Cardiovascular: no chest pain Gastrointestinal: + abdominal pain (complaints of upper abdominal pain), + bloating, + nausea and + constipation; no vomiting Physical Exam Physical Exam: awake/alert, no distress Constitutional: no acute distress Respiratory: normal respiratory effort Gastrointestinal (Abdomen): Inspection/Auscultation: + abdomen distended (mild) Percussion/Palpation: + abdomen tender (generalized mild discomfort throughout abdomen) and abdomen soft Results & Data Vital Signs (Past 12 Hours) Vital Signs Temp Pulse Resp BP Pulse Ox O2 Del Method 02/13/23 07:31 37.0 C 60 15 109/66 95 Room Air PG Care Time/CCT Total # of Minutes Spent Total Time Spent with Patient: Total time spent is greater than 50% in coordination of care (as documented) at patient's floor/unit and/or counseling patient: Coding Level of Care Code 28969 SUB INP/OBS CARE 25MIN Diagnoses Partial small bowel obstruction K56.600
[2023-02-13] MEDS ORDERED: traZODone HCL 50 MG TAB PO SCH (22:15)
[2023-02-14] MEDS: FLUTICASONE/VILANTEROL 200/25MCG 14 PUFFS/INHALER INH SCH (07:48)
[2023-02-14] MEDS: NICOTINE 21 MG/24 HR TDSY TD SCH (07:48)
[2023-02-14] MEDS: BUPRENORPHINE/NALOXONE 8/2 MG TAB SL SCH (07:52)
[2023-02-14 08:03] LABS: Hematocrit (blood only) 27.2 % (37.0-47.0); Hemoglobin 9.1 g/dl (12.0-16.0); Mean Corpuscular Hemoglobin 31.8 pg (25.0-34.0); Mean Corpuscular Hgb Conc 33.5 g/dL (32.0-36.0); Mean Corpuscular Volume 95.1 fL (80.0-100.0); Mean Platelet Volume 9.6 fL (9.4-12.4); Platelet Count 426 K/uL (130-400); RDW Coefficient of Variation 12.8 % (11.5-14.5); RDW Standard Deviation 45.1 fL (36.4-46.3); Red Blood Count 2.86 M/uL (4.20-5.40); White Blood Count 5.75 K/ul (4.8-10.8)
[2023-02-14 08:24] LABS: BUN Creatinine Ratio 13.8 (10-20); Calcium 8.3 mg/dl (8.6-10.3); Creatinine Clr Calc Pharmacy 63.9 ml/min; Est GFR (Non-African American) 77.7 ml/min; Magnesium 1.7 mg/dl (1.7-2.4); Phosphorus 3.5 mg/dl (2.5-4.9); Potassium 3.7 mmol/L (3.5-5.1)
[2023-02-14] MEDS ORDERED: POTASSIUM CHLORIDE / WTR 10 MEQ/100 ML PLCT IV ONE (08:50)
[2023-02-14] MEDS ORDERED: MAGNESIUM SULFATE / D5W 1 GM/100 ML BAG IV ONE (08:50)
--- NOTE | 2023-02-14 09:33 | Surgery Progress Note ---
Date of Service February 14, 2023 Assessment & Plan (1) Partial small bowel obstruction: Plan: Lowe grade SBO. Miguelina reports that she is feeling better today and is "back at her baseline." She did move her bowels again this morning and continues to pass flatus. She reports that she is hungry. Tolerated clear liquids yesterday for dinner and breakfat- will advance her to low fiber. She was encouraged to go slow with diet. She is interested in discharge today, which is reasonable if ok with primary team. Return precautions reviewed. Admission and Anticipated Discharge Date Admission Date: February 12, 2023 Supervising Physician Co-Signing Physician Notes I personally saw and evaluated the patient with Naina Ramirez PA-C and agree with the assessment and plan. 52-year-old female with small bowel obstruction versus enteritis She has improvement of her abdominal pain and did have a slightly more significant bowel movement today She is tolerating clear liquids, will advance to low fiber diet she can be discharged home if she remains stable and tolerates this Subjective Miguelina is resting in bed, reports that she did have another bowel movement this AM, bit more substantial than yesterday. She continues to pass flatus. She continues to have some abdominal discomfort, but reports that this improved since yesterday. She states that she is back to her baseline. Review of Systems Constitutional: no fever and no chills Respiratory: no dyspnea Cardiovascular: no chest pain Gastrointestinal: + abdominal pain (complaints of upper abdominal pain), + bloating, + nausea and + constipation; no vomiting Physical Exam Physical Exam: awake/alert, no distress Constitutional: no acute distress Respiratory: normal respiratory effort Gastrointestinal (Abdomen): Inspection/Auscultation: + abdomen distended (mild) Percussion/Palpation: + abdomen tender (generalized mild discomfort throughout abdomen (improved from yesterday)) and abdomen soft Results & Data Vital Signs (Past 12 Hours) Vital Signs Temp Pulse Resp BP Pulse Ox O2 Del Method 02/14/23 07:34 36.4 C L 59 L 15 118/68 96 Room Air PG Care Time/CCT Total # of Minutes Spent Total Time Spent with Patient: Total time spent is greater than 50% in coordination of care (as documented) at patient's floor/unit and/or counseling patient: Coding Level of Care Code 55718 SUB INP/OBS CARE 1/25MIN Diagnoses Partial small bowel obstruction K56.171
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
[2023-02-14] MEDS ORDERED: MAGNESIUM OXIDE 400 MG TAB PO SCH (09:45)
== END 2023-02-14 12:17 | disposition home or self-care (01) | DRG 389 ==
LOC: ED 11:54 → 3W 15:23 → SUATTDRO 15:23 → 3W 18:00